=== PATIENT | female | born 1945 | race Caucasian/White ===

== ENCOUNTER 2020-10-05 06:02 | Outpatient (REF) | payer MEDICARE, OTHER, SELFPAY ==
[2020-10-05 11:39] LABS: Hematocrit 45.6 % (37-47); Hemoglobin 14.5 g/dl (12.0-16.0); Mean Corpuscular HGB Conc 31.8 g/dl (31.0-35.0); Mean Corpuscular Hemoglobin 30.6 pg (27.0-33.0); Mean Corpuscular Volume 96.2 fL (80-98); Mean Platelet Volume 11.3 fL (9.4-12.3); Platelet Count 201 X10*3/uL (160-400); Red Blood Count 4.74 X10*6/uL (4.20-5.50); Red Cell Distribution Width 12.4 % (11.0-16.0); White Blood Count 5.3 X10*3/uL (4.8-10.8)
[2020-10-05 11:47] LABS: Glucose Urine UA NEG (NEG); Leukocyte Esterase Urine 3+ (NEG); Nitrite Urine POS (NEG); Urine Blood TRACE (NEG); Urine Ketones NEG (NEG); Urine Protein NEG (NEG-TRACE)
[2020-10-05 11:54] LABS: Appearance Urine CLOUDY; Color Urine YELLOW
[2020-10-05 11:59] LABS: WBC Urine TNTC /HPF (0-4)
[2020-10-05 12:00] LABS: Bacteria Urine 3+ /LPF; Mucus Urine 1+ /LPF; Renal Epithelial Cells Urine 1+ /LPF; Squamous Epithelial Cell Urine 1+ /LPF
[2020-10-05 12:16] LABS: Alanine Aminotransferase 11 U/L (0-31); Albumin Level 4.2 g/dL (3.5-5.0); Alkaline Phosphatase 82 U/L (39-117); Anion Gap 13 (12-20); Aspartate Amino Transferase 18 U/L (5-31); Bilirubin Total 0.6 mg/dL (0.0-1.0); Blood Urea Nitrogen 17 mg/dL (9-16); Calcium 9.1 mg/dL (8.4-10.2); Carbon Dioxide 29 mmol/L (22-29); Chloride 105 mmol/L (96-108); Cholesterol 224 mg/dL; Estimated Glomerular Filt Rate > 60; Glucose Fasting 87 mg/dL (60-99); HDL Cholesterol 77 mg/dL; LDL Cholesterol Calculated 132 mg/dl; Potassium 4.7 mmol/l (3.3-5.1); Sodium 142 mmol/L (135-145); Total Protein 6.6 g/dL (6.5-8.0); Triglycerides 79 mg/dL
[2020-10-05 12:17] LABS: Vitamin D 25-OH Total 37.4 ng/mL (>30)
== END 2020-10-05 06:03 | disposition home or self-care (01) ==
LOC: HO.HMGCLDS 06:02
PROVIDERS: PCP Internal Medicine; Visit Provider Internal Medicine
DX: M85.89 Other specified disorders of bone density and structure, multiple sites (principal); E78.2 Mixed hyperlipidemia; E55.9 Vitamin D deficiency, unspecified
CPT/HCPCS: 36415; 80053; 80061; 81001; 82306; 85027

== ENCOUNTER 2020-10-07 06:07 | Outpatient (REF) | payer MEDICARE, OTHER, SELFPAY ==
[2020-10-07 11:44] LABS: Glucose Urine UA NEG (NEG); Leukocyte Esterase Urine 3+ (NEG); Nitrite Urine POS (NEG); Specific Gravity - Urine 1.025 (1.005-1.025); Urine Blood TRACE (NEG); Urine Ketones NEG (NEG); Urine Protein NEG (NEG-TRACE)
[2020-10-07 11:49] LABS: Appearance Urine CLOUDY; Color Urine YELLOW
[2020-10-07 12:13] LABS: Bacteria Urine 3+ /LPF; Calcium Oxalate Crystals Urine 2+ /LPF; Mucus Urine 1+ /LPF; Squamous Epithelial Cell Urine 1+ /LPF; WBC Urine TNTC /HPF (0-4)
== END 2020-10-07 06:08 | disposition home or self-care (01) ==
LOC: HO.HMGCLDS 06:07
PROVIDERS: PCP Internal Medicine; Visit Provider Internal Medicine
DX: R82.71 Bacteriuria (principal)
CPT/HCPCS: 81001; 87086; 87088; 87186

== ENCOUNTER 2020-12-14 07:37 | Outpatient (REF) | payer MEDICARE, OTHER, SELFPAY ==
--- NOTE | ~2020-12-14 | MM_ITS ---
EXAMINATION: MM SCREENING DIGITAL BREAST TOMOSYNTHESIS, BILATERAL CLINICAL INFORMATION: Screening. Asymptomatic. And prior history benign breast surgery in 1980s. The lifetime risk of breast cancer based on the Tyrer-Cuzick Model is 8%. COMPARISON: Mammography: 07/12/2019, 06/29/2018, 06/27/2017 TECHNIQUE: Digital breast tomosynthesis is performed in both the craniocaudal and mediolateral oblique views along with computer-aided detection (CAD). Synthesized 2D images are generated from the tomosynthesis. FINDINGS: There are scattered areas of fibroglandular density (ACR BI-RADS breast composition Category b). There are no significant masses, abnormal calcifications, or other abnormalities. The axilla and skin contours are unremarkable. No significant changes. MM/MM tomosynthesis screening BI IMPRESSION: No mammographic evidence of malignancy. ASSESSMENT: BI-RADS 1: Negative RECOMMENDATION: Routine annual mammography screening. This patient's information was entered into a reminder system with a target due date for their next mammogram.
== END 2020-12-14 07:38 | disposition home or self-care (01) ==
LOC: HO.MAMMO 07:37
PROVIDERS: PCP Internal Medicine; Visit Provider Internal Medicine
DX: Z12.31 Encounter for screening mammogram for malignant neoplasm of breast (principal)
CPT/HCPCS: 77063; 77067

== ENCOUNTER 2021-04-07 07:01 | Outpatient (REF) | payer MEDICARE, OTHER, SELFPAY ==
[2021-04-07 11:34] LABS: Glucose Urine UA NEG (NEG); Leukocyte Esterase Urine 3+ (NEG); Nitrite Urine POS (NEG); UACC Culture Trigger YES; Urine Blood 1+ (NEG); Urine Ketones NEG (NEG); Urine Protein NEG (NEG-TRACE)
[2021-04-07 11:35] LABS: Appearance Urine CLOUDY; Color Urine YELLOW
[2021-04-07 11:48] LABS: WBC Clumps Urine NOTED; WBC Urine TNTC /HPF (0-4)
[2021-04-07 11:49] LABS: Bacteria Urine 4+ /LPF
[2021-04-07 12:03] LABS: Alanine Aminotransferase 14 U/L (0-31); Albumin Level 4.5 g/dL (3.5-5.0); Alkaline Phosphatase 95 U/L (39-117); Anion Gap 15 (12-20); Aspartate Amino Transferase 24 U/L (5-31); Bilirubin Total 0.7 mg/dL (0.0-1.0); Blood Urea Nitrogen 13 mg/dL (9-16); Calcium 9.5 mg/dL (8.4-10.2); Carbon Dioxide 23 mmol/L (22-29); Chloride 105 mmol/L (96-108); Cholesterol 224 mg/dL; Estimated Glomerular Filt Rate > 60; Glucose Fasting 91 mg/dL (60-99); HDL Cholesterol 85 mg/dL; LDL Cholesterol Calculated 118 mg/dl; Potassium 4.3 mmol/L (3.3-5.1); Sodium 139 mmol/L (135-145); Total Protein 6.9 g/dL (6.5-8.0); Triglycerides 106 mg/dL
== END 2021-04-07 07:02 | disposition home or self-care (01) ==
LOC: HO.HMGCLDS 07:01
PROVIDERS: PCP Internal Medicine; Visit Provider Internal Medicine
DX: E78.5 Hyperlipidemia, unspecified (principal); R82.71 Bacteriuria
CPT/HCPCS: 36415; 80053; 80061; 81001; 81003; 87086; 87088; 87186

== ENCOUNTER 2021-12-27 08:04 | Outpatient (REF) | payer MEDICARE, OTHER, SELFPAY ==
--- NOTE | ~2021-12-27 | MM_ITS ---
EXAMINATION: MM SCREENING DIGITAL BREAST TOMOSYNTHESIS, BILATERAL CLINICAL INFORMATION: Screening. Asymptomatic. The lifetime risk of breast cancer based on the Tyrer-Cuzick Model is 4%. COMPARISON: Mammography: 12/14/2020, 07/12/2019, 06/29/2018 TECHNIQUE: Digital breast tomosynthesis is performed in both the craniocaudal and mediolateral oblique views along with computer-aided detection (CAD). Synthesized 2D images are generated from the tomosynthesis. FINDINGS: There are scattered areas of fibroglandular density (ACR BI-RADS breast composition Category b). There are no significant masses, abnormal calcifications, or other abnormalities. Parenchymal pattern is similar to prior studies. Small circumscribed nodularity central anterior right breast on MLO tomography are stable from prior studies. There are no significant changes. MM/MM tomosynthesis screening BI IMPRESSION: No mammographic evidence of malignancy. ASSESSMENT: BI-RADS 2: Benign RECOMMENDATION: Routine annual mammography screening. This patient's information was entered into a reminder system with a target due date for their next mammogram.
== END 2021-12-27 08:05 | disposition home or self-care (01) ==
LOC: HO.MAMMO 08:04
PROVIDERS: PCP Internal Medicine; Visit Provider Internal Medicine
DX: Z12.31 Encounter for screening mammogram for malignant neoplasm of breast (principal)
CPT/HCPCS: 77063; 77067

== ENCOUNTER 2022-05-16 08:30 | Outpatient (REF) | payer MEDICARE, OTHER, SELFPAY ==
[2022-05-16 08:53] LABS: Binax Internal Control QC Valid; Binax Now Covid-19 Ag Positive (Negative); Binax Performed by: HO.BONILM
== END 2022-05-16 08:31 | disposition home or self-care (01) ==
LOC: HO.HMGCLDS 08:30
PROVIDERS: Visit Provider Internal Medicine
DX: Z20.822 Contact with and (suspected) exposure to COVID-19 (principal); J06.9 Acute upper respiratory infection, unspecified
CPT/HCPCS: 87811

== ENCOUNTER 2023-01-26 09:12 | Outpatient (REF) | payer MEDICARE, OTHER, SELFPAY ==
--- NOTE | ~2023-01-26 | MM_ITS ---
EXAMINATION: MM SCREENING DIGITAL BREAST TOMOSYNTHESIS, BILATERAL CLINICAL INFORMATION: Screening. Asymptomatic. The lifetime risk of breast cancer based on the Tyrer-Cuzick Model is 3%. COMPARISON: Mammography: December 27, 2021 and studies dating back to June 29, 2018 TECHNIQUE: Digital breast tomosynthesis is performed in both the craniocaudal and mediolateral oblique views along with computer-aided detection (CAD). Synthesized 2D images are generated from the tomosynthesis. FINDINGS: There are scattered areas of fibroglandular density (ACR BI-RADS breast composition Category b). There are no significant masses, abnormal calcifications, or other abnormalities. MM/MM tomosynthesis screening BI IMPRESSION: No significant changes from prior exam. ASSESSMENT: BI-RADS 1: Negative RECOMMENDATION: Routine annual mammography screening. This patient's information was entered into a reminder system with a target due date for their next mammogram.
== END 2023-01-26 09:13 | disposition home or self-care (01) ==
LOC: HO.MAMMO 09:12
PROVIDERS: PCP Internal Medicine; Visit Provider Internal Medicine
DX: Z12.31 Encounter for screening mammogram for malignant neoplasm of breast (principal)
CPT/HCPCS: 77063; 77067

== ENCOUNTER 2023-06-14 06:02 | Outpatient (REF) | payer MEDICARE, OTHER, SELFPAY ==
[2023-06-14 11:36] LABS: MANUAL DIFF FLAG NO
[2023-06-14 11:42] LABS: Basophils Absolute Auto 0.1 X10*3/uL (0.0-0.2); Basophils Percent Auto 0.9 % (0-2); Eosinophils Absolute Auto 0.2 X10*3/uL (0.0-0.4); Eosinophils Percent Auto 3.7 % (0-4); Hematocrit 45.5 % (37.0-47.0); Hemoglobin 14.6 g/dl (12.0-16.0); Imm Gran Abs Auto 0.02 X10*3/uL (0.00-0.03); Imm Gran Pct Auto 0.3 % (0.0-0.4); Lymphocytes Absolute Auto 1.1 X10*3/uL (1.2-4.9); Lymphocytes Percent Auto 16.7 % (20-40); Mean Corpuscular HGB Conc 32.1 g/dl (31.0-35.0); Mean Corpuscular Hemoglobin 30.2 pg (27.0-33.0); Mean Corpuscular Volume 94.2 fL (80.0-98.0); Mean Platelet Volume 10.9 fL (9.4-12.3); Monocytes Absolute Auto 0.6 X10*3/uL (0.1-1.2); Monocytes Percent Auto 8.4 % (2-11); Neutrophils Absolute Auto 4.6 x10*3/uL (2.0-8.3); Platelet Count 198 X10*3/uL (160-400); Red Blood Count 4.83 X10*6/uL (4.20-5.50); Red Cell Distribution Width 12.2 % (11.0-16.0); White Blood Count 6.5 X10*3/uL (4.8-10.8)
[2023-06-14 12:20] LABS: Alanine Aminotransferase 13 U/L (0-31); Albumin Level 4.2 g/dL (3.5-5.0); Alkaline Phosphatase 87 U/L (39-117); Anion Gap 14 (12-20); Aspartate Amino Transferase 21 U/L (5-31); Bilirubin Total 0.8 mg/dL (0.0-1.0); Blood Urea Nitrogen 11 mg/dL (9-16); Calcium 9.4 mg/dL (8.4-10.2); Carbon Dioxide 26 mmol/L (22-29); Chloride 107 mmol/L (96-108); Cholesterol 222 mg/dL; Estimated Glomerular Filt Rate > 60; Glucose Fasting 94 mg/dL (60-99); HDL Cholesterol 77 mg/dL; LDL Cholesterol Calculated 128 mg/dl; Potassium 4.1 mmol/L (3.3-5.1); Sodium 143 mmol/L (135-145); Total Protein 6.5 g/dL (6.5-8.0); Triglycerides 85 mg/dL; Vitamin D 25-OH Total 44.1 ng/mL (>30)
== END 2023-06-14 06:03 | disposition home or self-care (01) ==
LOC: HO.HMGCLDS 06:02
PROVIDERS: PCP Internal Medicine; Visit Provider Internal Medicine
DX: E55.9 Vitamin D deficiency, unspecified (principal); M85.80 Other specified disorders of bone density and structure, unspecified site; E78.5 Hyperlipidemia, unspecified
CPT/HCPCS: 36415; 80053; 80061; 82306; 84443; 85025

== ENCOUNTER 2023-06-15 10:12 | Outpatient (AMB) | payer MEDICARE, OTHER, SELFPAY ==
--- NOTE | 2023-06-15 10:26 | A.OFFPC_ITS ---
Vital Signs 06/15/23 10:27 Height 5 ft 8 in Weight 155 lb BMI 23.6 BP 132/80 Blood Pressure Location Lt brachial Position Sitting Pulse 95 Pulse Source Pulse Oximeter Pulse Oximetry (%) 98 Oxygen Delivery Method Room Air Intake Visit Reasons: PE/ hyoerlipid Intake Note: Pt is here today for PE. Allergies No Known Allergies Allergy (Verified 06/15/23 10:29) Medication List - Last Reconciled 06/15/23 by Sarah Funes MD calcium carbonate-vitamin D2 600 mg calcium- 200 unit tabs PO multivitamin 1 tab PO DAILY Tobacco use date assessed: 06/15/23 Fall risk assessment: 1 Fall in past year Last assessed Fall Risk: 06/15/23 Dental Screening Dental Screen Date: 06/15/23 Did you have a dental visit in the last 12 months?: Yes Did you have a dental problem in the last 6 months where you did not have access to dental care?: No Was dental information given to patient?: Patient has dentist HPI PE/ hyoerlipid HPI Details Pt presents for PE. Pt had been following low cholesterol diet. [facility] Medical History Bacteriuria, asymptomatic Chondrodermatitis nodularis helicis Hyperlipidemia Mammogram normal Osteopenia Surgical History History of colonoscopy History of total abdominal hysterectomy and bilateral salpingo-oophorectomy Family History Father HTN (hypertension) Colon cancer Mother CVD (cardiovascular disease) Osteoporosis Brother No problems noted. Brother No problems noted. Social History (Updated 06/15/23 @ 11:00 by Sarah Funes MD) Household Members Other:: lives alone, Housing: Condominium Alcohol intake: never Patient Tobacco Use Status: Never used Tobacco e-Cigarette/Vaping Use: Never Used Current occupational status: retired Cognitive needs: No Hearing needs: No Vision needs: Yes Questionnaire PHQ-9 Over the last 2 weeks, how often have you been bothered by any of the following problems? 1. Little interest or pleasure in doing things: not at all 2. Feeling down, depressed, or hopeless: not at all 3. Trouble falling or staying asleep, or sleeping too much: not at all 4. Feeling tired or having little energy: not at all 5. Poor appetite or overeating: not at all 6. Feeling bad about yourself - or that you are a failure or have let yourself or your family down: not at all 7. Trouble concentrating on things, such as reading the newspaper or watching television: not at all 8. Moving or speaking so slowly that other people could have noticed. Or the opposite - being so fidgety or restless that you have been moving around a lot m ore than usual: not at all 9. Thoughts that you would be better off or of hurting yourself in some way: not at all Total score: 0 Depression Screening Interpretation: Negative Source: Developed by Drs. Monroe Perez, Alexus Madrigal, Doug Nascimento and colleagues, with an educational shira from [employer] Thrive Questionnaire Date Thrive assessed: 06/15/23 I am a: Patient What is your living situation today?: I have a steady place to live Within the past 12 months, did the food you bought not last and you didn't have the money to get more?: Never true Within the past 12 months, did you worry whether your food would run out before you got money to buy more?: Never true Do you have trouble paying for medicines?: No Do you have trouble getting transportation to medical appointments?: No Do you have trouble paying your heating and electricity bill?: No Do you have trouble taking care of your child, family member or friend?: No Do you have trouble with day-to-day activities such as bathing, preparing meals, shopping, managing finances, etc.?: No Are you currently unemployed and looking for a job?: No Are you interested in more education?: No Please select the resources that you would like help with: None Currently or been in a relationship where the following occur: no concerns reported AUDIT C Alcohol Use Questionnaire (AUDIT-C) 1. How often do you have a drink containing alcohol?: Never 3. How often do you have six or more drinks on one occasion?: Never Total Score: 0 ALEXANDER-7 AMB Questionnaire ALEXANDER-7 Date ALEXANDER - 7 assessed: 06/15/23 Feeling nervous, anxious, or on edge: 0 = Not at all Not being able to stop or control worryin = Not at all Worrying too much about different things: 0 = Not at all Trouble relaxin = Not at all Being so restless that it is hard to sit still: 0 = Not at all Becoming easily annoyed or irritable: 0 = Not at all Feeling afraid as if something awful might happen: 0 = Not at all Total ALEXANDER-7 score (0-4 normal; 5-9 mild; 10-14 moderate; 15-21 severe): 0 Source: Developed by Drs. Monroe Perez, Alexus Madrigal, Doug Nascimento and colleagues, with an educational shira from [employer] Review of Systems Const All systems reviewed & are unremarkable except as noted in HPI and below Reports no additional complaints Eyes Reports no additional complaints ENT Reports no additional complaints Card Reports no additional complaints Resp Reports no additional complaints GI Reports no additional complaints Reports no additional complaints Physical exam (Primary Care) Vital Signs: Last Vital Signs Pulse 95 06/15/23 10:27 BP 132/80 06/15/23 10:27 Pulse Ox 98 06/15/23 10:27 Oxygen Delivery Method Room Air 06/15/23 10:27 BMI result Body Mass Index 23.6 Tobacco/Smoking Status: Tobacco use Status Tobacco use date assessed 06/15/23 06/15/23 10:35 Patient Tobacco Use Status Never used Tobacco 06/15/23 10:35 e-Cigarette/Vaping Use Never Used 06/15/23 10:35 PHQ-9: PHQ-9 Score PHQ-9: Total score 0 06/15/23 10:35 Depression Screening Interpretation: Negative Thrive Assessment: Date of Thrive Assessment Date Thrive assessed 06/15/23 06/15/23 10:35 Currently or been in a relationship where the following occur: no concerns reported Const General: no acute distress HENMT Ears: hearing grossly normal bilaterally Face and sinus: Yes normal facial exam Mouth: Normal oral and palatal mucosa present Eyes General: appearance normal, both eyes and all related structures Neck Neck: Yes supple Resp Effort & Inspection: normal respiratory effort Auscultation: clear to auscultation bilaterally Cardio Rhythm: regular rhythm Heart sounds: S1 normal heart sound present and S2 normal heart sound present GI Inspection: Yes normal to inspection Palpation (GI): Soft to palpation Percussion: Yes normal to percussion Auscultation: normal bowel sounds Assessment and Plan Assessment & Plan (1) Osteopenia: Comment: DEXA 11/2019 T score 1.3 femur Code(s): M85.80 - Other specified disorders of bone density and structure, unspecified site Plan: Continue regular exercise and vitamin-D supplement (2) Hyperlipidemia: Code(s): E78.5 - Hyperlipidemia, unspecified Plan: Continue low-cholesterol diet (3) Annual physical exam: Code(s): Z00.00 - Encounter for general adult medical examination without abnormal findings Plan: Well-balanced diet and regular physical activity discussed with the patient Orders: Orders Comprehensive Hale. Panel Fast 365 Days E55.9 - Vitamin D deficiency, unspecified, E78.5 - Hyperlipidemia, unspecified, M85.80 - Other specified disorders of bone density and structure, unspecified site, Z00.00 - Encounter for general adult medical examination without abnormal findings Lipid Panel 365 Days E55.9 - Vitamin D deficiency, unspecified, E78.5 - Hyperlipidemia, unspecified, M85.80 - Other specified disorders of bone density and structure, unspecified site, Z00.00 - Encounter for general adult medical examination without abnormal findings TSH reflex Free T4 365 Days E55.9 - Vitamin D deficiency, unspecified, E78.5 - Hyperlipidemia, unspecified, M85.80 - Other specified disorders of bone density and structure, unspecified site, Z00.00 - Encounter for general adult medical examination without abnormal findings Vitamin D 25-OH Total 365 Days E55.9 - Vitamin D deficiency, unspecified, E78.5 - Hyperlipidemia, unspecified, M85.80 - Other specified disorders of bone density and structure, unspecified site, Z00.00 - Encounter for general adult medical examination without abnormal findings Complete Blood Count Auto Diff 365 Days E55.9 - Vitamin D deficiency, unspecified, E78.5 - Hyperlipidemia, unspecified, M85.80 - Other specified disorders of bone density and structure, unspecified site, Z00.00 - Encounter for general adult medical examination without abnormal findings Coding Level of Care Code Est Pt Prev Care >65y(12810) Diagnoses Osteopenia M85.80 Hyperlipidemia E78.5 Annual physical exam Z00.00
[2023-06-15 10:27] VITALS: BP 132/80; PULSE 95; O2SAT 98; BMI 23.6
== END 2023-06-15 10:58 | disposition home or self-care (01) ==
PROVIDERS: PCP Internal Medicine; Visit Provider Internal Medicine
DX: Z00.00 Encounter for general adult medical examination without abnormal findings (principal); M85.80 Other specified disorders of bone density and structure, unspecified site; E78.5 Hyperlipidemia, unspecified
CPT/HCPCS: 99397

== ENCOUNTER 2024-01-30 09:20 | Outpatient (AMB) | payer MEDICARE, OTHER, SELFPAY ==
[2024-01-30 09:26] VITALS: BP 130/80; PULSE 83; O2SAT 99; BMI 23.4
--- NOTE | 2024-01-30 09:26 | MHC.PC.OV ---
Vital Signs 01/30/24 09:26 Height 5 ft 8 in Weight 154 lb BMI 23.4 BP 130/80 Blood Pressure Location Lt brachial Position Sitting Pulse 83 Pulse Source Pulse Oximeter Pulse Oximetry (%) 99 Oxygen Delivery Method Room Air Intake Visit Reasons: Pre Op Cataract [place] Intake Note: Pt is here today for pre op visit. Pt is having cataract done on 02/12/24. Allergies No Known Allergies Allergy (Verified 01/30/24 09:31) Tobacco use date assessed: 01/30/24 Fall risk assessment: 1 Fall in past year Last assessed Fall Risk: 01/30/24 Dental Screening Dental Screen Date: 01/30/24 Did you have a dental visit in the last 12 months?: Yes Did you have a dental problem in the last 6 months where you did not have access to dental care?: No Was dental information given to patient?: Patient has dentist [facility] Details Pt presents for preop cataract surgery. [facility] Medical History Bacteriuria, asymptomatic Chondrodermatitis nodularis helicis Hyperlipidemia Mammogram normal Osteopenia Surgical History History of colonoscopy History of total abdominal hysterectomy and bilateral salpingo-oophorectomy Family History Father HTN (hypertension) Colon cancer Mother CVD (cardiovascular disease) Osteoporosis Brother No problems noted. Brother No problems noted. Social History (Updated 06/15/23 @ 11:00 by Sarah Funes MD) Household Members Other:: lives alone, Housing: Condominium Alcohol intake: never Patient Tobacco Use Status: Never used Tobacco e-Cigarette/Vaping Use: Never Used Current occupational status: retired Cognitive needs: No Hearing needs: No Vision needs: Yes Questionnaire PHQ-9 Over the last 2 weeks, how often have you been bothered by any of the following problems? 1. Little interest or pleasure in doing things: not at all 2. Feeling down, depressed, or hopeless: not at all 3. Trouble falling or staying asleep, or sleeping too much: not at all 4. Feeling tired or having little energy: not at all 5. Poor appetite or overeating: not at all 6. Feeling bad about yourself - or that you are a failure or have let yourself or your family down: not at all 7. Trouble concentrating on things, such as reading the newspaper or watching television: not at all 8. Moving or speaking so slowly that other people could have noticed. Or the opposite - being so fidgety or restless that you have been moving around a lot more than usual: not at all 9. Thoughts that you would be better off or of hurting yourself in some way: not at all Total score: 0 Depression Screening Interpretation: Negative Depression Screening Done: Yes Source: Developed by Drs. Monroe Perez, Alexus Madrigal, Doug Nascimento and colleagues, with an educational shira from [email or web address]. Thrive Questionnaire Date Thrive assessed: 01/30/24 I am a: Patient What is your living situation today?: I have a steady place to live Within the past 12 months, did the food you bought not last and you didn't have the money to get more?: Never true Within the past 12 months, did you worry whether your food would run out before you got money to buy more?: Never true Do you have trouble paying for medicines?: No Do you have trouble getting transportation to medical appointments?: No Do you have trouble paying your heating and electricity bill?: No Do you have trouble taking care of your child, family member or friend?: No Do you have trouble with day-to-day activities such as bathing, preparing meals, shopping, managing finances, etc.?: No Are you currently unemployed and looking for a job?: No Are you interested in more education?: No Please select the resources that you would like help with: None THRIVE Score: 0 ALEXANDER-7 AMB Questionnaire ALEXANDER-7 Date ALEXANDER - 7 assessed: 01/30/24 Feeling nervous, anxious, or on edge: 0 = Not at all Not being able to stop or control worryin = Not at all Worrying too much about different things: 0 = Not at all Trouble relaxin = Not at all Being so restless that it is hard to sit still: 0 = Not at all Becoming easily annoyed or irritable: 0 = Not at all Feeling afraid as if something awful might happen: 0 = Not at all Total ALEXANDER-7 score (0-4 normal; 5-9 mild; 10-14 moderate; 15-21 severe): 0 Source: Developed by Drs. Monroe Perez, Alexus Madrigal, Doug Nascimento and colleagues, with an educational shira from [email or web address]. Review of Systems Const All systems reviewed & are unremarkable except as noted in HPI and below Reports no additional complaints Eyes Reports no additional complaints ENT Reports no additional complaints Card Reports no additional complaints Resp Reports no additional complaints GI Reports no additional complaints Reports no additional complaints Physical exam (Primary Care) Vital Signs: Last Vital Signs Pulse 83 01/30/24 09:26 BP 130/80 01/30/24 09:26 Pulse Ox 99 01/30/24 09:26 Oxygen Delivery Method Room Air 01/30/24 09:26 BMI result Body Mass Index 23.4 Tobacco/Smoking Status: Tobacco use Status Tobacco use date assessed 01/30/24 01/30/24 09:34 Patient Tobacco Use Status Never used Tobacco 01/30/24 09:34 e-Cigarette/Vaping Use Never Used 01/30/24 09:27 PHQ-9: PHQ-9 Score PHQ-9: Total score 0 01/30/24 09:34 Depression Screening Interpretation: Negative Thrive Assessment: Date of Thrive Assessment Date Thrive assessed 01/30/24 01/30/24 09:34 Const General: no acute distress HENMT Head: Yes normal to inspection Face and sinus: Yes normal facial exam Mouth: Normal oral and palatal mucosa present Eyes General: appearance normal, both eyes and all related structures Neck Neck: Yes supple Resp Effort & Inspection: normal respiratory effort Auscultation: clear to auscultation bilaterally Cardio Rhythm: regular rhythm Heart sounds: S1 normal heart sound present and S2 normal heart sound present GI Inspection: Yes normal to inspection Assessment and Plan Assessment & Plan (1) Cataract: Code(s): H26.9 - Unspecified cataract Plan: Patient is medically cleared for the cataract surgery. Coding Level of Care Code Est Pt Level 3 (62897) Diagnoses Cataract H26.9
== END 2024-01-30 10:03 | disposition home or self-care (01) ==
PROVIDERS: PCP Internal Medicine; Visit Provider Internal Medicine
DX: H26.9 Unspecified cataract (principal)
CPT/HCPCS: 99213

== ENCOUNTER 2024-02-06 07:16 | Outpatient (REF) | payer MEDICARE, OTHER, SELFPAY | END 2024-02-06 07:17 | disposition home or self-care (01) | LOC: HO.MAMMO 07:16 | PROVIDERS: PCP Internal Medicine; Visit Provider Internal Medicine | DX: Z12.31 Encounter for screening mammogram for malignant neoplasm of breast (principal) | CPT/HCPCS: 77063; 77067 ==

== ENCOUNTER → 2024-02-06 07:30 | Outpatient (BNV) | payer MEDICARE, OTHER, SELFPAY | PROVIDERS: PCP Internal Medicine; Visit Provider Radiology Diagnostic Radiology | DX: Z12.31 Encounter for screening mammogram for malignant neoplasm of breast (principal) | CPT/HCPCS: 77063; 77067 ==

== ENCOUNTER 2024-02-12 05:59 | Day surgery (SDC) | payer MEDICARE, OTHER, SELFPAY ==
[2024-02-06 10:42] VITALS: BMI 23.4
--- NOTE | 2024-02-08 13:50 | HO.ANESPROP2 ---
Documented by User: Nancy Winston NP 02/08/24 13:51 HPI - Anesthesia Eval Consult details Narrative: 78yo F for Right Cataract Extraction IOL Insertion Optimized per PCP No previous cataract on record PMFSH Active Problems Active Problems: All Active Problems Cataract (Acute) Annual physical exam (Acute) Corneal abrasion of right eye due to contact lens (Acute) Vitamin D deficiency (Acute) Upper respiratory tract infection (Acute) Osteopenia (Acute) Hyperlipidemia (Acute) Mammogram normal (Acute) Bacteriuria, asymptomatic (Acute) Past Medical History Medical History Hyperlipidemia Mammogram normal Chondrodermatitis nodularis helicis Osteopenia Bacteriuria, asymptomatic Family History Family History Father HTN (hypertension) Colon cancer Mother CVD (cardiovascular disease) Osteoporosis Brother No problems noted. Brother No problems noted. Surgical History Surgical History History of total abdominal hysterectomy and bilateral salpingo-oophorectomy History of colonoscopy Social History Social History Household Members Other:: lives alone, Housing: Condominium Alcohol intake: never Patient Tobacco Use Status: Never used Tobacco e-Cigarette/Vaping Use: Never Used Use of substances other than those prescribed or required for medical reasons: No Are you DNR?: No Advance Directives: No Advance Directives Information Provided: Yes Current occupational status: retired Cognitive needs: No Hearing needs: No Vision needs: Yes Meds Allergies Allergy/AdvReac Type Severity Reaction Status Date / Time No Known Allergies Allergy Verified 01/30/24 09:31 Home Medications ?Medication ?Instructions ?Recorded ?Confirmed ?Last Taken ?Type multivitamin 1 tab PO DAILY 10/08/20 06/15/23 Unknown History calcium carb-ergocalciferol (vit tab PO 08/13/22 06/15/23 Unknown History D2) 600 mg calcium-200 unit tablet Exam Height,Weight and Vital Signs: Height 5 ft 8 in Weight 69.853 kg Assessment and Plan Assessment Anesthesia Assessment: Chart Reviewed Documented by User: Tuyet Alcaraz MD 02/12/24 07:55 PMFSH Past Medical History Medical History Hyperlipidemia Mammogram normal Chondrodermatitis nodularis helicis Osteopenia Bacteriuria, asymptomatic Family History Family History Father HTN (hypertension) Colon cancer Mother CVD (cardiovascular disease) Osteoporosis Brother No problems noted. Brother No problems noted. Family history of problems with anesthesia: No Surgical History Surgical History History of total abdominal hysterectomy and bilateral salpingo-oophorectomy History of colonoscopy History of Problems with Anesthesia: No Social History Social History Household Members Other:: lives alone, Housing: Condominium Alcohol intake: never Patient Tobacco Use Status: Never used Tobacco e-Cigarette/Vaping Use: Never Used Use of substances other than those prescribed or required for medical reasons: No Are you DNR?: No Advance Directives: No Advance Directives Information Provided: Yes Current occupational status: retired Cognitive needs: No Hearing needs: No Vision needs: Yes Meds Allergies Allergy/AdvReac Type Severity Reaction Status Date / Time No Known Allergies Allergy Verified 01/30/24 09:31 Home Medications ?Medication ?Instructions ?Recorded ?Confirmed ?Last Taken ?Type multivitamin 1 tab PO DAILY 10/08/20 06/15/23 Unknown History calcium carb-ergocalciferol (vit tab PO 08/13/22 06/15/23 Unknown History D2) 600 mg calcium-200 unit tablet Exam Airway Mallampati Class: II TM Dist: >3cm Neck ROM: Full Heart: rrr Lungs: cta Assessment and Plan Assessment Anesthesia Assessment: Anesthesia Plan Discussed and Chart Reviewed Final Anesthetic Review Family History of Problems with Anesthesia: No History of Problems with Anesthesia: No NPO: Yes ASA Class: II Final Preanesthetic Review: No Changes in Pt Med Stat, Meds/Allgs Chart Reviewed, Consent Obtained/Reviewed and Anes Risks/Benef Reviewed Patient Risk: Low Procedure Risk: Low Anesthetic Plan Anesthetic Plan: MAC: Disposition: Standard PACU
[2024-02-12 06:02] VITALS: BMI 24.0
[2024-02-12 06:18] VITALS: BP 172/87; PULSE 106; RESP 16; TEMP 36.9; O2SAT 96
[2024-02-12] MEDS: Lactated Ringers 500 ML 50 ML IV (06:20)
[2024-02-12] MEDS: Tetracaine HCl/PF 0.5% Oph Sol 4 ML DROPS 1 DROP EYE-RIGHT (06:57)
[2024-02-12] MEDS: Cyclopentolate 1 % Ophth Sol 2 ML DRPBTL 1 DROP EYE-RIGHT ×3 (07:00→07:24)
[2024-02-12] MEDS: Tropicamide 1 % Ophth Sol 3 ML BTL 1 DROP EYE-RIGHT ×3 (07:03→07:27)
[2024-02-12] MEDS: Ketorolac Tromethamine 0.5% Op 5 ML DROPS 1 DROP EYE-RIGHT ×3 (07:06→07:30)
[2024-02-12] MEDS: Phenylephrine HCL 2.5% Oph SoL 2 ML BOTTLE 1 DROP EYE-RIGHT ×3 (07:09→07:33)
--- NOTE | 2024-02-12 08:17 | MHC.SHP ---
Pre-Procedural Eval Section A - 24 Hr Update-Section A only Date of Service: 02/12/24 The patient is an INPATIENT: No Changes since office visit: No Cold of Flu in the past 2 weeks, No New Medical Problems, No Changes in Medication and No Patient answered all questions The patient has been examined within 24 hours of the surgical procedure. The History & Physical has been completed within 30 days and I have reviewed it.: Yes Section B - Complete if H&P > 30 days Chief Complaint: Age-related nuclear cataract, right eye Allergies: Allergies Allergy/AdvReac Type Severity Reaction Status Date / Time No Known Allergies Allergy Verified 01/30/24 09:31 Plan Diagnosis/Plan: Unchanged I have reviewed the history and physical and performed a pertinent physical examination on my patient. No changes have occurred unless specified. Time Spent With Patient Time: Total time managing care of this patient today ____ minutes.
--- NOTE | 2024-02-12 08:17 | HO.PNOPHT ---
Ophthalmology Procedure Procedure Date of Service: 02/12/24 Ophthalmology Viscoelastic: Healon Duet Dual Pack Pro Ophthalmology Lenses: IOL AC Howard ([id number]) Procedure Notes: PREOPERATIVE DIAGNOSIS: Decreased visual acuity right eye secondary to cataract POSTOPERATIVE DIAGNOSIS: Same PROCEDURE: Right cataract extraction with intraocular lens insertion SURGEON: Parmjit Rivera M.D. ANESTHESIA: Topical/MAC ESTIMATED BLOOD LOSS: None COMPLICATIONS: None After obtaining informed consent, the patient was brought to the operating room suite and placed in the supine position. After adequate sedation per anesthesia, topical drops of Tetracaine were given to the right eye. The eye was then prepped and draped in the usual sterile fashion. The operating room microscope was then positioned over the operative eye and a lid speculum placed. A paracentesis was created. Viscoelastic was then instilled into the anterior chamber. A three plane incision was then created temporally, utilizing a 2.85 mm keratome. Capsulotomy forceps were then utilized to create a circular tear capsulotomy. Hydrodissection and hydrodelineation were carried out until adequate mobilization of the nucleus occurred. Phacoemulsification was then utilized to remove the dense central nucleus followed by removal of the cortical material utilizing the automated aspiration irrigation unit. Viscoelastic was instilled into the posterior capsular bag followed by placement of a posterior chamber intraocular lens without difficulty. The residual Viscoelastic was then removed utilizing the automated IA machine. The wound was checked and found to be watertight. The patient tolerated the procedure well and the lid speculum was removed. Intracameral injection of Vigamox 0.1 mL followed by a subtenon injection of Kenalog-40 0.2 mL were administered. The patient will be seen in the a.m.
[2024-02-12 08:59] VITALS: BP 148/98; PULSE 94; RESP 18; TEMP 36.4; O2SAT 99
== END 2024-02-12 09:03 | disposition home or self-care (01) ==
PROVIDERS: PCP Internal Medicine; Visit Provider Ophthalmology
PROC: (CPT 66985; principal; 2024-02-12 08:20)
DX: H25.11 Age-related nuclear cataract, right eye (principal); H52.4 Presbyopia; H18.413 Arcus senilis, bilateral; H52.13 Myopia, bilateral; H43.393 Other vitreous opacities, bilateral; H61.009 Unspecified perichondritis of external ear, unspecified ear; E78.5 Hyperlipidemia, unspecified; M85.80 Other specified disorders of bone density and structure, unspecified site; Z79.899 Other long term (current) drug therapy
CPT/HCPCS: 66984; J2250; J3010; J3301; V2630

== ENCOUNTER 2024-02-26 10:27 | Day surgery (SDC) | payer MEDICARE, OTHER, SELFPAY ==
[2024-02-06 10:40] VITALS: BMI 23.4
[2024-02-26 14:00] VITALS: BP 157/97; PULSE 102; RESP 15; TEMP 36.5; O2SAT 97
[2024-02-26] MEDS: Tetracaine HCl/PF 0.5% Oph Sol 4 ML DROPS 1 DROP EYE-LEFT (14:08)
[2024-02-26] MEDS: Tropicamide 1 % Ophth Sol 3 ML BTL 1 DROP EYE-LEFT ×3 (14:10→14:16)
[2024-02-26] MEDS: Ketorolac Tromethamine 0.5% Op 5 ML DROPS 1 DROP EYE-LEFT ×3 (14:11→14:17)
[2024-02-26] MEDS: Phenylephrine HCL 2.5% Oph SoL 2 ML BOTTLE 1 DROP EYE-LEFT ×3 (14:12→14:18)
--- NOTE | 2024-02-26 14:31 | HO.ANESPROP2 ---
HPI - Anesthesia Eval Consult details Narrative: 78 yo F presenting for Left Cataract Extraction IOL Insertion PMFSH Active Problems Active Problems: All Active Problems Cataract (Acute) Annual physical exam (Acute) Corneal abrasion of right eye due to contact lens (Acute) Vitamin D deficiency (Acute) Upper respiratory tract infection (Acute) Osteopenia (Acute) Hyperlipidemia (Acute) Mammogram normal (Acute) Bacteriuria, asymptomatic (Acute) Past Medical History Medical History Hyperlipidemia Mammogram normal Chondrodermatitis nodularis helicis Osteopenia Bacteriuria, asymptomatic Family History Family History Father HTN (hypertension) Colon cancer Mother CVD (cardiovascular disease) Osteoporosis Brother No problems noted. Brother No problems noted. Family history of problems with anesthesia: No Surgical History Surgical History (Updated 02/26/24 @ 14:19 by Jana Deshpande RN) Hx of right cataract extraction History of total abdominal hysterectomy and bilateral salpingo-oophorectomy History of colonoscopy History of Problems with Anesthesia: No Social History Social History Household Members Other:: lives alone, [facility] Alcohol intake: never Patient Tobacco Use Status: Never used Tobacco e-Cigarette/Vaping Use: Never Used Advance Directives: No Advance Directives Information Provided: Yes Current occupational status: retired Cognitive needs: No Hearing needs: No Vision needs: Yes Meds Allergies Allergy/AdvReac Type Severity Reaction Status Date / Time No Known Allergies Allergy Verified 02/26/24 14:19 Active Medications: Current Medications Povidone Iodine (Povidone Iodine 5 % Ophth Soln 30 Ml Bottle) 1 appl EYE-LEFT PREOP PRN PRN Reason: Pre-Op Surgical Implant Prophy Home Medications ?Medication ?Instructions ?Recorded ?Confirmed ?Last Taken ?Type multivitamin 1 tab PO DAILY 10/08/20 06/15/23 Unknown History calcium carb-ergocalciferol (vit tab PO 08/13/22 06/15/23 Unknown History D2) 600 mg calcium-200 unit tablet Exam Exam Date and Time: February 26, 2024 1430 Height,Weight and Vital Signs: Height 5 ft 8 in Weight 69.853 kg Last Vital Signs Temp 97.7 F 02/26/24 14:00 Pulse 102 H 02/26/24 14:00 Resp 15 02/26/24 14:00 BP 157/97 H 02/26/24 14:00 Pulse Ox 97 02/26/24 14:00 O2 Del Method Room Air 02/26/24 14:00 Airway Mallampati Class: II TM Dist: >3cm Neck ROM: Full Loose/Missing/Broken Teeth: No (patient denies any loose or broken teeth) Heart: S1S2 Lungs: CTAB Assessment and Plan Assessment Anesthesia Assessment: Anesthesia Plan Discussed and Chart Reviewed Final Anesthetic Review Family History of Problems with Anesthesia: No History of Problems with Anesthesia: No NPO: Yes ASA Class: II Final Preanesthetic Review: No Changes in Pt Med Stat, Meds/Allgs Chart Reviewed, Consent Obtained/Reviewed and Anes Risks/Benef Reviewed Patient Risk: Low Procedure Risk: Low Anesthetic Plan Anesthetic Plan: MAC: and Agree w/ Assess. and Plan Disposition: Standard PACU
--- NOTE | 2024-02-26 14:46 | MHC.SHP ---
Pre-Procedural Eval Section A - 24 Hr Update-Section A only Date of Service: 02/26/24 The patient is an INPATIENT: No Changes since office visit: No Cold of Flu in the past 2 weeks, No New Medical Problems, No Changes in Medication and No Patient answered all questions The patient has been examined within 24 hours of the surgical procedure. The History & Physical has been completed within 30 days and I have reviewed it.: Yes Section B - Complete if H&P > 30 days Chief Complaint: Age-related nuclear cataract, left eye Allergies: Allergies Allergy/AdvReac Type Severity Reaction Status Date / Time No Known Allergies Allergy Verified 02/26/24 14:19 Plan Diagnosis/Plan: Unchanged I have reviewed the history and physical and performed a pertinent physical examination on my patient. No changes have occurred unless specified. Time Spent With Patient Time: Total time managing care of this patient today ____ minutes.
--- NOTE | 2024-02-26 14:46 | HO.PNOPHT ---
Ophthalmology Procedure Procedure Date of Service: 02/26/24 Ophthalmology Viscoelastic: Healon Duet Dual Pack Pro Ophthalmology Lenses: SENSAR AR40 (E 5.5) Procedure Notes: PREOPERATIVE DIAGNOSIS: Decreased visual acuity left eye secondary to cataract POSTOPERATIVE DIAGNOSIS: Same PROCEDURE: Left cataract extraction with intraocular lens insertion SURGEON: Parmjit Rivera M.D. ANESTHESIA: Topical/MAC ESTIMATED BLOOD LOSS: None COMPLICATIONS: None After obtaining informed consent, the patient was brought to the operation room suite and placed in the supine position. After adequate sedation per anesthesia, topical drops of Tetracaine were given to the left eye. The eye was then prepped and draped in the usual sterile fashion. The operating room microscope was then positioned over the operative eye and a lid speculum placed. A paracentesis was created. Viscoelastic was then instilled into the anterior chamber. A three plane incision was then created temporally, utilizing a 2.85 mm keratome. Capsulotomy forceps were then utilized to create a circular tear capsulotomy. Hydrodissection and hydrodelineation were carried out until adequate mobilization of the nucleus occurred. Phacoemulsification was then utilized to remove the dense central nucleus followed by removal of the cortical material utilizing the automated aspiration irrigation unit. Viscoat elastic was instilled into the posterior capsular bag followed by placement of a posterior chamber intraocular lens without difficulty. The residual Viscoat elastic was then removed utilizing the automated IA machine. The wound was check and found to be watertight. The patient tolerated the procedure well and the lid speculum was removed. Intracameral injection of Vigamox 0.1 mL followed by a subtenon injection of Kenalog-40 0.2 mL were administered. The patient will be seen in the a.m.
[2024-02-26 15:15] VITALS: BP 177/92; PULSE 88; RESP 12; TEMP 37.7; O2SAT 99
== END 2024-02-26 15:35 | disposition home or self-care (01) ==
PROVIDERS: PCP Internal Medicine; Visit Provider Ophthalmology
PROC: (CPT 66985; principal; 2024-02-26 12:30)
DX: H25.12 Age-related nuclear cataract, left eye (principal); H52.4 Presbyopia; H18.413 Arcus senilis, bilateral; H52.13 Myopia, bilateral; H43.393 Other vitreous opacities, bilateral; H61.009 Unspecified perichondritis of external ear, unspecified ear; M85.80 Other specified disorders of bone density and structure, unspecified site; E78.5 Hyperlipidemia, unspecified; Z79.899 Other long term (current) drug therapy
CPT/HCPCS: 66984; J3301; V2632

== ENCOUNTER 2024-05-27 08:05 | Outpatient (AMB) | payer MEDICARE, OTHER, SELFPAY ==
[2024-05-27 08:14] VITALS: BP 122/78; PULSE 82; TEMP 36.8; O2SAT 97; BMI 22.8
--- NOTE | 2024-05-27 08:14 | AM.OFFWIN_ITS ---
Intake Vital Signs 05/27/24 08:14 Height 5 ft 8 in Weight 150 lb BMI 22.8 BP 122/78 Blood Pressure Location Lt brachial Position Sitting Pulse 82 Pulse Source Pulse Oximeter Temp 98.2 F Temp Source Temporal Artery Scan Pulse Oximetry (%) 97 Intake Visit Reasons: EP Eye concerns/?infection Intake Note: pt is here for eye concern possible infection, patient states she had cataracts done in february and not sure if its related but her eyes feel gritty Patient Tobacco Use Status: Never used Tobacco Allergies No Known Allergies Allergy (Verified 05/27/24 08:15) Do you need a note to return to daycare/school/sports/work: No HPI EP Eye concerns/?infection HPI Details This note is constructed using voice recognition software. While every effort has been made to ensure accuracy, technical services specialist errors may have been included. The patient is a 79 year old female who presents to the clinic today with 3 day history of create a sensation in bilateral eyes. She denies any change in her vision, any pain, any discharge, any itch. She reports that she has done warm compresses which seemed to reduce the symptoms some. She does follow an chocolate finisher operator, and did not though to see him as today is his procedure day, but she did not want to wait for a prolonged period of time with symptoms given her history of having bilateral cataract surgery several months ago. She notes that she is also had some recent sneezing, particularly when she is gardening. Onset 05/25/24 [facility] Medical History Hyperlipidemia Mammogram normal Chondrodermatitis nodularis helicis Osteopenia Bacteriuria, asymptomatic Surgical History (Updated 02/26/24 @ 14:19 by Jana Deshpande RN) Hx of right cataract extraction History of total abdominal hysterectomy and bilateral salpingo-oophorectomy History of colonoscopy Family History Father HTN (hypertension) Colon cancer Mother CVD (cardiovascular disease) Osteoporosis Brother No problems noted. Brother No problems noted. Social History Household Members Other:: lives alone, Housing: Condominium Alcohol intake: never Patient Tobacco Use Status: Never used Tobacco e-Cigarette/Vaping Use: Never Used Current occupational status: retired Cognitive needs: No Hearing needs: No Vision needs: Yes Review of Systems Const All systems reviewed & are unremarkable except as noted in HPI and below Physical Exam Vital Signs: Last Vital Signs Temp 98.2 F 05/27/24 08:14 Pulse 82 05/27/24 08:14 BP 122/78 05/27/24 08:14 Pulse Ox 97 05/27/24 08:14 BMI result Body Mass Index 22.8 Const General: cooperative, healthy appearing, comfortable, no acute distress and alert Orientation/consciousness: patient oriented x3 Limitations: no limitations HEENT Head: Yes normal to inspection and Yes normocephalic General nose exam: Normal external nose present Face and sinus: Yes normal facial exam and Yes sinuses nontender Eyes General: appearance normal, both eyes and all related structures Eyelids: Yes eyelids normal Conjunctivae: conjunctivae normal Sclerae: sclerae normal Pupils: Equal, round and reactive pupils present EOM: EOMs intact bilaterally Direct Ophthalmoscopy: normal light reflex Neck Neck: Yes normal visual inspection, Yes full ROM and Yes no lymphadenopathy Resp Effort & Inspection: normal respiratory effort and able to speak in complete sentences Skin General skin exam: no rashes or lesions noted, elasticity normal and turgor normal Neuro General: patient oriented x3 Cranial nerves: Yes Equal, round and reactive pupils present Psych Appearance: grossly normal Mental Status: mental status grossly normal Speech and movement: Normal speech and movement present Affect: normal affect Office Procedures Fluorescein eye exam Details: Instill tetracaine eyedrops to bilateral eyes, followed by fluorescein stain. No pooling of stain noted on lighted eye exam. Assessment & Plan Assessment & Plan (1) Irritation of both eyes: Code(s): H57.89 - Other specified disorders of eye and adnexa Plan: Normal fluorescein eye exam, examination without specific findings. Advised patient to trial bbfd-byr-npibome saline, and continue warm compresses to the eyes. Advised follow up with Ophthalmology should symptoms continue or worsen. Plan See above for full details and plan. Coding Level of Care Code Est Pt Level 3 (15567) Diagnoses Irritation of both eyes H57.89 Time Spent (min) 15
== END 2024-05-27 09:28 | disposition home or self-care (01) ==
PROVIDERS: PCP Internal Medicine; Visit Provider Registered Nurse
DX: H57.89 Other specified disorders of eye and adnexa (principal)
CPT/HCPCS: 99213

== ENCOUNTER 2024-06-24 08:18 | Outpatient (AMB) | payer MEDICARE, OTHER, SELFPAY ==
[2024-06-24 08:20] VITALS: BP 130/74; PULSE 97; O2SAT 98; BMI 23.7
--- NOTE | 2024-06-24 08:20 | MHC.PC.OV ---
Vital Signs 06/24/24 08:20 Height 5 ft 8 in Weight 156 lb BMI 23.7 BP 130/74 Blood Pressure Location Rt brachial Position Sitting Pulse 97 Pulse Source Pulse Oximeter Pulse Oximetry (%) 98 Oxygen Delivery Method Room Air Intake Visit Reasons: PE/ hyoerlipid Intake Note: Pt is here today for PE. Allergies No Known Allergies Allergy (Verified 06/24/24 08:22) Medication List - Last Reconciled 06/24/24 by Sarah Funes MD calcium carbonate-vitamin D2 600 mg calcium- 200 unit tabs PO multivitamin 1 tab PO DAILY Tobacco use date assessed: 06/24/24 Dental Screening Dental Screen Date: 01/30/24 HPI PE/ hyoerlipid HPI Details Pt presents for PE. PFSH Medical History (Updated 06/24/24 @ 08:47 by Sarah Funes MD) Hyperlipidemia Mammogram normal Chondrodermatitis nodularis helicis Osteopenia Bacteriuria, asymptomatic Surgical History Hx of right cataract extraction History of total abdominal hysterectomy and bilateral salpingo-oophorectomy History of colonoscopy Family History Father HTN (hypertension) Colon cancer Mother CVD (cardiovascular disease) Osteoporosis Brother No problems noted. Brother No problems noted. 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, walks daily for 4 miles, retired teacher Housing: Condominium Alcohol intake: never Patient Tobacco Use Status: Never used Tobacco e-Cigarette/Vaping Use: Never Used service: No Current occupational status: retired Cognitive needs: No Hearing needs: No Vision needs: Yes Questionnaire PHQ-9 Over the last 2 weeks, how often have you been bothered by any of the following problems? 1. Little interest or pleasure in doing things: not at all 2. Feeling down, depressed, or hopeless: not at all 3. Trouble falling or staying asleep, or sleeping too much: not at all 4. Feeling tired or having little energy: not at all 5. Poor appetite or overeating: not at all 6. Feeling bad about yourself - or that you are a failure or have let yourself or your family down: not at all 7. Trouble concentrating on things, such as reading the newspaper or watching television: not at all 8. Moving or speaking so slowly that other people could have noticed. Or the opposite - being so fidgety or restless that you have been moving around a lot more than usual: not at all 9. Thoughts that you would be better off or of hurting yourself in some way: not at all Total score: 0 Depression Screening Interpretation: Negative Depression Screening Done: Yes Source: Developed by Drs. Monroe Perez, Alexus Madrigal, Doug Nascimento and colleagues, with an educational shira from [employer] Thrive Questionnaire Date Thrive assessed: 06/17/24 I am a: Patient What is your living situation today?: I have a steady place to live Within the past 12 months, did the food you bought not last and you didn't have the money to get more?: Never true Within the past 12 months, did you worry whether your food would run out before you got money to buy more?: Never true Do you have trouble paying for medicines?: No Do you have trouble getting transportation to medical appointments?: No Do you have trouble paying your heating and electricity bill?: No Do you have trouble taking care of your child, family member or friend?: No Do you have trouble with day-to-day activities such as bathing, preparing meals, shopping, managing finances, etc.?: No Are you currently unemployed and looking for a job?: No Are you interested in more education?: No Please select the resources that you would like help with: None Currently or been in a relationship where the following occur: No concerns reported THRIVE Score: 0 AUDIT C Alcohol Use Questionnaire (AUDIT-C) 1. How often do you have a drink containing alcohol?: Never Total Score: 0 ALEXANDER-7 AMB Questionnaire ALEXANDER-7 Date ALEXANDER - 7 assessed: 06/24/24 Feeling nervous, anxious, or on edge: 0 = Not at all Not being able to stop or control worryin = Not at all Worrying too much about different things: 0 = Not at all Trouble relaxin = Not at all Being so restless that it is hard to sit still: 0 = Not at all Becoming easily annoyed or irritable: 0 = Not at all Feeling afraid as if something awful might happen: 0 = Not at all Total ALEXANDER-7 score (0-4 normal; 5-9 mild; 10-14 moderate; 15-21 severe): 0 Source: Developed by Drs. Monroe Perez, Alexus Madrigal, Doug Nascimento and colleagues, with an educational shira from [employer] ALEXANDER-7 Assessment Billing ALEXANDER-7 Assessment Tool: ALEXANDER-7 Assessment 50506 Review of Systems Const All systems reviewed & are unremarkable except as noted in HPI and below Reports no additional complaints Eyes Reports no additional complaints ENT Reports no additional complaints Card Reports no additional complaints Resp Reports no additional complaints GI Reports no additional complaints Reports no additional complaints Neuro Reports no additional complaints Physical exam (Primary Care) Vital Signs: Last Vital Signs Pulse 97 06/24/24 08:20 BP 130/74 06/24/24 08:20 Pulse Ox 98 06/24/24 08:20 Oxygen Delivery Method Room Air 06/24/24 08:20 BMI result Body Mass Index 23.7 Tobacco/Smoking Status: Tobacco use Status Tobacco use date assessed 06/24/24 06/24/24 08:27 Patient Tobacco Use Status Never used Tobacco 06/24/24 08:27 e-Cigarette/Vaping Use Never Used 06/24/24 08:27 PHQ-9: PHQ-9 Score PHQ-9: Total score 0 06/24/24 08:27 Depression Screening Interpretation: Negative Thrive Assessment: Date of Thrive Assessment Date Thrive assessed 06/17/24 06/24/24 08:27 Currently or been in a relationship where the following occur: No concerns reported Const General: no acute distress HENMT Head: Yes normal to inspection Ears: hearing grossly normal bilaterally Mouth: Normal oral and palatal mucosa present Throat: Yes posterior oropharynx normal Eyes General: appearance normal, both eyes and all related structures Resp Effort & Inspection: normal respiratory effort Auscultation: clear to auscultation bilaterally Cardio Rhythm: regular rhythm Heart sounds: S1 normal heart sound present and S2 normal heart sound present GI Inspection: Yes normal to inspection Palpation (GI): Soft to palpation Percussion: Yes normal to percussion Auscultation: normal bowel sounds Assessment and Plan Assessment & Plan (1) Osteopenia: Comment: DEXA 11/2019 T score -1.3 femur Code(s): M85.80 - Other specified disorders of bone density and structure, unspecified site Plan: check DEXA, continue vitamin-D supplement and regular exercises (2) Annual physical exam: Code(s): Z00.00 - Encounter for general adult medical examination without abnormal findings Plan: Well-balanced diet regular exercise discussed with the patient. She will return for fasting blood work (3) Vitamin D deficiency: Code(s): E55.9 - Vitamin D deficiency, unspecified Orders: Orders XR DEXA axial skeleton Today M85.80 - Other specified disorders of bone density and structure, unspecified site, Z00.00 - Encounter for general adult medical examination without abnormal findings Comprehensive [place]. Panel Fast 1 Year E55.9 - Vitamin D deficiency, unspecified, M85.80 - Other specified disorders of bone density and structure, unspecified site, Z00.00 - Encounter for general adult medical examination without abnormal findings Complete Blood Count Auto Diff 1 Year E55.9 - Vitamin D deficiency, unspecified, M85.80 - Other specified disorders of bone density and structure, unspecified site, Z00.00 - Encounter for general adult medical examination without abnormal findings Vitamin D 25-OH Total 1 Year E55.9 - Vitamin D deficiency, unspecified, M85.80 - Other specified disorders of bone density and structure, unspecified site, Z00.00 - Encounter for general adult medical examination without abnormal findings Lipid Panel 1 Year E55.9 - Vitamin D deficiency, unspecified, M85.80 - Other specified disorders of bone density and structure, unspecified site, Z00.00 - Encounter for general adult medical examination without abnormal findings Coding Level of Care Code Est Pt Prev Care >65y(65068) Diagnoses Osteopenia M85.80 Annual physical exam Z00.00 Vitamin D deficiency E55.9 Additional Codes ALEXANDER-7 Assessment Billing - ALEXANDER-7 Assessment Tool: ALEXANDER-7 Assessment 32385 ([id number])
== END 2024-06-24 08:53 | disposition home or self-care (01) ==
PROVIDERS: PCP Internal Medicine; Visit Provider Internal Medicine
DX: Z00.00 Encounter for general adult medical examination without abnormal findings (principal); M85.80 Other specified disorders of bone density and structure, unspecified site; E55.9 Vitamin D deficiency, unspecified
CPT/HCPCS: 99397

== ENCOUNTER 2024-06-25 06:29 | Outpatient (REF) | payer MEDICARE, OTHER, SELFPAY ==
[2024-06-25 10:05] LABS: MANUAL DIFF FLAG NO
[2024-06-25 10:09] LABS: Basophils Absolute Auto 0.1 X10*3/uL (0.0-0.2); Basophils Percent Auto 1.1 % (0-2); Eosinophils Absolute Auto 0.2 X10*3/uL (0.0-0.4); Eosinophils Percent Auto 3.6 % (0-4); Hematocrit 45.2 % (37.0-47.0); Hemoglobin 14.8 g/dl (12.0-16.0); Imm Gran Abs Auto 0.01 X10*3/uL (0.00-0.03); Imm Gran Pct Auto 0.2 % (0.0-0.4); Lymphocytes Absolute Auto 1.6 X10*3/uL (1.2-4.9); Lymphocytes Percent Auto 28.5 % (20-40); Mean Corpuscular HGB Conc 32.7 g/dl (31.0-35.0); Mean Corpuscular Volume 94.8 fL (80.0-98.0); Mean Platelet Volume 10.7 fL (9.4-12.3); Monocytes Absolute Auto 0.6 X10*3/uL (0.1-1.2); Monocytes Percent Auto 10.2 % (2-11); Neutrophils Absolute Auto 3.1 x10*3/uL (2.0-8.3); Neutrophils Percent Auto 56.4 % (45-73); Platelet Count 227 X10*3/uL (160-400); Red Blood Count 4.77 X10*6/uL (4.20-5.50); Red Cell Distribution Width 12.1 % (11.0-16.0); White Blood Count 5.5 X10*3/uL (4.8-10.8)
[2024-06-25 10:41] LABS: Alanine Aminotransferase 13 U/L (0-31); Albumin Level 4.1 g/dL (3.5-5.0); Alkaline Phosphatase 82 U/L (39-117); Anion Gap 10 (12-20); Aspartate Amino Transferase 20 U/L (5-31); Bilirubin Total 0.4 mg/dL (0.0-1.0); Blood Urea Nitrogen 15 mg/dL (9-16); Calcium 9.4 mg/dL (8.4-10.2); Carbon Dioxide 27 mmol/L (22-29); Chloride 109 mmol/L (96-108); Cholesterol 208 mg/dL (<200); Estimated Glomerular Filt Rate > 60; Glucose Fasting 86 mg/dL (60-99); HDL Cholesterol 76 mg/dL (>40); LDL Cholesterol Calculated 115 mg/dL (<100); Sodium 142 mmol/L (135-145); Total Protein 6.5 g/dL (6.5-8.0); Triglycerides 86 mg/dL (<150)
[2024-06-25 10:45] LABS: TSH reflex Free T4 1.89 uIU/mL (0.32-4.0); Vitamin D 25-OH Total 63.9 ng/mL (>30)
== END 2024-06-25 06:30 | disposition home or self-care (01) ==
LOC: HO.HMGCLDS 06:29
PROVIDERS: PCP Internal Medicine; Visit Provider Internal Medicine
DX: Z00.00 Encounter for general adult medical examination without abnormal findings (principal); E78.5 Hyperlipidemia, unspecified; M85.80 Other specified disorders of bone density and structure, unspecified site; E55.9 Vitamin D deficiency, unspecified
CPT/HCPCS: 36415; 80053; 80061; 82306; 84443; 85025

== ENCOUNTER 2024-07-11 09:22 | Outpatient (AMB) | payer MEDICARE, OTHER, SELFPAY ==
--- NOTE | 2024-07-11 09:31 | AM.OFFWIN_ITS ---
Intake Vital Signs 07/11/24 09:40 Weight 156 lb BP 110/80 Blood Pressure Location Rt brachial Position Sitting Pulse 100 Pulse Source Pulse Oximeter Pulse Oximetry (%) 97 Oxygen Delivery Method Room Air Intake Visit Reasons: EP-UTI? Intake Note: Patient here for frequent urination, left lower back pain. Patient Tobacco Use Status: Never used Tobacco Allergies No Known Allergies Allergy (Verified 07/11/24 09:41) Do you need a note to return to daycare/school/sports/work: No HPI EP-UTI? HPI Details This note is constructed using voice recognition software. While every effort has been made to ensure accuracy, trimmer machine errors may have been included. The patient is a 79 year old female who presents to the clinic today with dysuria for the past few days. She reports urgency, frequency, and mild burning with urination. She notes that she has had some kidney stones back in the 1970s, which were pretty extensive and involved surgery for repair so she has been always a little bit more vigilant and paying attention to her to her urinary tract symptoms. When the symptoms started she did increase her hydration, however she did not get evaluated as she has been responsible for the care of her brother. She does attribute the care of her brother to some slightly decreased hydration efforts over the past few days, and has since tried to reach increase that hydration efforts. She denies fever, chills, body aches, back pain, blood in the urine. [facility] Medical History (Updated 06/24/24 @ 08:47 by Sarah Funes MD) Hyperlipidemia Mammogram normal Chondrodermatitis nodularis helicis Osteopenia Bacteriuria, asymptomatic Surgical History Hx of right cataract extraction History of total abdominal hysterectomy and bilateral salpingo-oophorectomy History of colonoscopy Family History Father HTN (hypertension) Colon cancer Mother CVD (cardiovascular disease) Osteoporosis Brother No problems noted. Brother No problems noted. 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, walks daily for 4 miles, retired teacher Housing: Condominium Alcohol intake: never Patient Tobacco Use Status: Never used Tobacco e-Cigarette/Vaping Use: Never Used service: No Current occupational status: retired Cognitive needs: No Hearing needs: No Vision needs: Yes Review of Systems Const All systems reviewed & are unremarkable except as noted in HPI and below Physical Exam Vital Signs: Last Vital Signs Pulse 100 07/11/24 09:40 BP 110/80 07/11/24 09:40 Pulse Ox 97 07/11/24 09:40 Oxygen Delivery Method Room Air 07/11/24 09:40 Const General: cooperative, healthy appearing, comfortable, no acute distress and alert Orientation/consciousness: patient oriented x3 Limitations: no limitations Resp Effort & Inspection: normal respiratory effort and able to speak in complete sentences Auscultation: clear to auscultation bilaterally Cardio Rate: regular rate Heart sounds: S1 normal heart sound present, S2 normal heart sound present, no click, no gallops, no murmurs and no rubs General: Yes no CVA tenderness Back/Spine/Pelvis Back: no CVA tenderness Skin General skin exam: no rashes or lesions noted, elasticity normal and turgor normal Neuro General: patient oriented x3 Extrem General: Yes normal to inspection, Yes full ROM, Yes capillary refill normal and Yes normal exam except as noted Psych Appearance: grossly normal Mental Status: mental status grossly normal Speech and movement: Normal speech and movement present Affect: normal affect Results AMB Urinalysis, Automated UA Leukoctes 500 Vickie/uL Last Edit by CLARITA Thibodeaux on 07/11/24 09: 42 UA Nitrite Positive Last Edit by CLARITA Thibodeaux on 07/11/24 09:42 UA Urobilinogen 0.2 mg/dL Last Edit by CLARITA Thibodeaux on 07/11/24 09:42 UA Protein 0 mg/dL Last Edit by CLARITA Thibodeaux on 07/11/24 09:42 UA pH 7.0 Last Edit by CLARITA Thibodeaux on 07/11/24 09:42 UA Blood 0 Renzo/uL Last Edit by CLARITA Thibodeaux on 07/11/24 09:42 UA Specific [place] 1.010 Last Edit by CLARITA Thibodeaux on 07/11/24 09:42 UA Ketone Negative Last Edit by CLARITA Thibodeaux on 07/11/24 09:42 UA Bilirubin 0 mg/dL Last Edit by CLARITA Thibodeaux on 07/11/24 09:42 UA Glucose 0 mg/dL Last Edit by CLARITA Thibodeaux on 07/11/24 09:42 Assessment & Plan Assessment & Plan (1) UTI (urinary tract infection): Code(s): N39.0 - Urinary tract infection, site not specified Qualifiers: Urinary tract infection type: acute cystitis Hematuria presence: without hematuria Qualified Code(s): N30.00 - Acute cystitis without hematuria Plan: Advised to increase hydration. Antiviral to requested pharmacy. Advised patient to take until completed. Advised patient to follow up with ongoing symptoms or worsening symptoms, which she may do so with either primary care provider or return to clinic. Plan See above for full details and plan. Orders: Orders AMB Urinalysis Automated Today Z13.9 - Encounter for screening, unspecified Medications: New ciprofloxacin HCl 250 mg PO BID 3 days 6 tabs 0RF Coding Level of Care Code Est Pt Level 3 (10334) Diagnoses Acute cystitis without hematuria N30.00 Urinary tract infection type: acute cystitis Hematuria presence: without hematuria
[2024-07-11 09:40] VITALS: BP 110/80; PULSE 100; O2SAT 97
== END 2024-07-11 10:09 | disposition home or self-care (01) ==
PROVIDERS: PCP Internal Medicine; Visit Provider Registered Nurse
DX: N30.00 Acute cystitis without hematuria (principal); Z13.9 Encounter for screening, unspecified
CPT/HCPCS: 81003; 99213

== ENCOUNTER 2024-07-16 10:19 | Outpatient (AMB) | payer MEDICARE, OTHER, SELFPAY ==
--- NOTE | 2024-07-16 10:33 | AM.OFFWIN_ITS ---
Intake Vital Signs 07/16/24 10:35 Height 5 ft 8 in Weight 156 lb BMI 23.7 BP 128/84 Blood Pressure Location Lt brachial Position Sitting Pulse 86 Pulse Source Pulse Oximeter Temp 98.7 F Temp Source Oral Pulse Oximetry (%) 98 Oxygen Delivery Method Room Air Intake Visit Reasons: EP UTI/not cleared Intake Note: pt c/o urinary urgency and lower back pain. Ongoing Patient Tobacco Use Status: Never used Tobacco Allergies No Known Allergies Allergy (Verified 07/16/24 10:34) Do you need a note to return to daycare/school/sports/work: No HPI HPI Comments History of Present Illness Details 79 y/o female patient who presents to [facility] walk in clinic with c/o Urinary symptoms. She was seen recently for similar symptoms and was treated with Cipro x 3 days. Pt still has symptoms and does not feel like Abx worked. [facility] Medical History (Updated 06/24/24 @ 08:47 by Sarah Funes MD) Hyperlipidemia Mammogram normal Chondrodermatitis nodularis helicis Osteopenia Bacteriuria, asymptomatic Surgical History Hx of right cataract extraction History of total abdominal hysterectomy and bilateral salpingo-oophorectomy History of colonoscopy Family History Father HTN (hypertension) Colon cancer Mother CVD (cardiovascular disease) Osteoporosis Brother No problems noted. Brother No problems noted. 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, walks daily for 4 miles, retired teacher Housing: Condominium Alcohol intake: never Patient Tobacco Use Status: Never used Tobacco e-Cigarette/Vaping Use: Never Used service: No Current occupational status: retired Cognitive needs: No Hearing needs: No Vision needs: Yes Physical Exam Vital Signs: Last Vital Signs Temp 98.7 F 07/16/24 10:35 Pulse 86 07/16/24 10:35 BP 128/84 07/16/24 10:35 Pulse Ox 98 07/16/24 10:35 Oxygen Delivery Method Room Air 07/16/24 10:35 BMI result Body Mass Index 23.7 Const General: cooperative and no acute distress Orientation/consciousness: patient oriented x3 General: Yes no CVA tenderness Back/Spine/Pelvis Back: no CVA tenderness Neuro General: patient oriented x3, gait normal and moves all extremities Psych Speech and movement: Normal speech and movement present Results AMB Urinalysis, Automated UA Leukoctes 0 Vickie/uL Last Edit by Mehul Harmon CMA on 07/16/24 10:45 UA Nitrite Negative Last Edit by Mehul Harmon CMA on 07/16/24 10:45 UA Urobilinogen 0.2 mg/dL Last Edit by Mehul Harmon CMA on 07/16/24 10:45 UA Protein 0 mg/dL Last Edit by Mehul Harmon CMA on 07/16/24 10:45 UA pH 6.0 Last Edit by Mehul Harmon CMA on 07/16/24 10:45 UA Blood 0 Renzo/uL Last Edit by Mehul Harmon CMA on 07/16/24 10:45 UA Specific [place] 1.010 Last Edit by Mehul Harmon CMA on 07/16/24 10:45 UA Ketone Negative Last Edit by Mehul Harmon CMA on 07/16/24 10:45 UA Bilirubin 0 mg/dL Last Edit by Mehul Harmon CMA on 07/16/24 10:45 UA Glucose 0 mg/dL Last Edit by Mehul Harmon CMA on 07/16/24 10:45 Results Reviewed Results Reviewed: Laboratory Last Values Urine pH (Auto) 6.0 07/16/24 10:33 Specific [place] (Auto) 1.010 07/16/24 10:33 Urine Protein (Auto) 0 mg/dL 07/16/24 10:33 Glucose (UA)(Auto) 0 mg/dL 07/16/24 10:33 Urine Ketones (Auto) Negative 07/16/24 10:33 Urine Blood (Auto) 0 Renzo/uL 07/16/24 10:33 Urine Nitrite (Auto) Negative 07/16/24 10:33 Urine Bilirubin (Auto) 0 mg/dL 07/16/24 10:33 Urine Urobilinogen (Auto) 0.2 mg/dL 07/16/24 10:33 Leukocyte Esterase (Auto) 0 Vickie/uL 07/16/24 10:33 Assessment & Plan Assessment & Plan (1) UTI (urinary tract infection): Code(s): N39.0 - Urinary tract infection, site not specified Qualifiers: Hematuria presence: without hematuria Urinary tract infection type: acute cystitis Qualified Code(s): N30.00 - Acute cystitis without hematuria Plan: Ordered Urine culture. Advised push fluids U/A in office normal Orders: Orders AMB Urinalysis Automated Today Z13.9 - Encounter for screening, unspecified UA CC w/rflx Micro + Cult Today N30.00 - Acute cystitis without hematuria Coding Level of Care Code Est Pt Level 3 (71921) Diagnoses Acute cystitis without hematuria N30.00 Hematuria presence: without hematuria Urinary tract infection type: acute cystitis Time Spent (min) 15
[2024-07-16 10:35] VITALS: BP 128/84; PULSE 86; TEMP 37.1; O2SAT 98; BMI 23.7
== END 2024-07-16 10:58 | disposition home or self-care (01) ==
PROVIDERS: PCP Internal Medicine; Visit Provider Nurse Practitioner Family
DX: Z13.9 Encounter for screening, unspecified (principal); N30.00 Acute cystitis without hematuria
CPT/HCPCS: 81003; 99213

== ENCOUNTER 2024-07-16 10:49 | Outpatient (REF) | payer MEDICARE, OTHER, SELFPAY ==
[2024-07-16 13:18] LABS: Appearance Urine Clear; Color Urine Yellow; Glucose Urine UA Negative (Negative); Leukocyte Esterase Urine Trace (Negative); Nitrite Urine Negative (Negative); PH 6.5 (5.0-9.0); Specific Gravity - Urine <= 1.005 (1.005-1.025); UMIC TRIGGER UACC YES; Urine Blood Negative (Negative); Urine Ketones Negative (Negative); Urine Protein Negative (Neg-Trace)
[2024-07-16 13:25] LABS: Bacteria Urine None Seen (None Seen); Hyaline Casts Urine 0-2 /LPF (0-2); RBC Urine 0-2 /HPF (0-2); Squamous Epithelial Cell Urine 0-2 /HPF (0-2); WBC Urine 0-5 /HPF (0-5)
== END 2024-07-16 10:50 | disposition home or self-care (01) ==
LOC: HO.LAB 10:49
PROVIDERS: Visit Provider Nurse Practitioner Family
DX: N39.0 Urinary tract infection, site not specified (principal)
CPT/HCPCS: 81001

== ENCOUNTER 2024-07-19 08:04 | Outpatient (REF) | payer MEDICARE, OTHER, SELFPAY ==
--- NOTE | ~2024-07-19 | MM_ITS ---
EXAMINATION: BONE DENSITOMETRY CLINICAL INDICATION: Other specified disorders of bone density and structure. COMPARISON: Previous BD dated 11/15/2019 and baseline BD dated 06/12/2008. TECHNIQUE: Using a Shout DXA System (software version: 13.1) manufactured by [employer], dual-energy x-ray absorptiometry was performed of the lumbar spine and left hip. The images are of good technical quality. Summary results are attached. FINDINGS: LEFT FEMUR, NECK: Current: BMD 0.949 g/cm2, Z-score 1.4, T-score -0.6, normal. Prior: BMD 0.852 g/cm2. Baseline: BMD 0.867 g/cm2. LEFT FEMUR, TOTAL: Current: BMD 0.787 g/cm2, Z-score 0.1, T-score -1.8, osteopenia, 7.8% decrease from previous, 19.7% decrease from baseline (<5% change is not significant). Prior: BMD 0.854 g/cm2. Baseline: BMD 0.980 g/cm2. AP SPINE L1-L4: Current: BMD 1.043 g/cm2, Z-score 0.6, T-score -1.1, osteopenia, 8.1% decrease from previous, 5.4% decrease from baseline (<5% change is not significant). Prior: BMD 1.135 g/cm2. Baseline: BMD 1.103 g/cm2. IDENTIFIED RISK FACTORS: Menopause, hysterectomy, history of fracture (adult), bilateral oophorectomy. HISTORY OF FRACTURE: Humerus. MEDICATIONS: Calcium supplements or multivitamin, vitamin D. MM/XR DEXA axial skeleton IMPRESSION: 1. DIAGNOSIS: Osteopenia based on the lowest T-score value of -1.8 in the total femur applying World Health Organization criteria. 2. 10-YEAR FRACTURE RISK PREDICTION, FRAX: Major osteoporotic fracture (clinical spine, forearm, hip or shoulder) 14.1%. Hip fracture 2.0%. 3. Treatment Recommendations: NOF guidelines recommend consideration for treatment in postmenopausal women and men age 50 and older presenting with the following: -A hip or vertebral (clinical or morphometric) fracture. -T-score less than or equal to -2.5 at the femoral neck or spine after appropriate evaluation to exclude secondary causes. -Low bone mass at the hip or spine and a 10-year fracture probability by FRAX of greater than or equal to 3% for hip fracture or greater than or equal to 20% for major osteoporotic fracture based on the [place] adapted WHO algorithm. 4. Other Recommendations: All treatment decisions require clinical judgment and consideration of individual patient factors, including patient preferences, comorbidities, previous drug use, risk factors not captured in the FRAX model (e.g. frailty, falls, vitamin D deficiency, increased bone turnover, interval significant decline in bone density) and possible under or overestimation of fracture risk by FRAX. Additional medical evaluation for secondary cause of low bone mineral density may be appropriate. FUTURE SCAN RECOMMENDATION: People with diagnosed cases of osteoporosis or at high risk for fracture should have regular bone mineral density tests. For patients eligible for Medicare, routine testing is allowed once every 2 years. The testing frequency can be increased to one year for patients who have rapidly progressing disease, those who are receiving or discontinuing medical therapy to restore bone mass, or have additional risk factors. Electronically signed by: Tobias Gar MD 07/23/2024 02:44 PM EDT
== END 2024-07-19 08:05 | disposition home or self-care (01) ==
LOC: HO.MAMMO 08:04
PROVIDERS: PCP Internal Medicine; Visit Provider Internal Medicine
DX: Z13.820 Encounter for screening for osteoporosis (principal); M85.80 Other specified disorders of bone density and structure, unspecified site; Z78.0 Asymptomatic menopausal state
CPT/HCPCS: 77080

== ENCOUNTER 2024-11-28 08:04 | Outpatient (AMB) | payer MEDICARE, OTHER, SELFPAY ==
[2024-11-28 08:27] VITALS: BP 122/84; PULSE 96; TEMP 36.4; O2SAT 99
--- NOTE | 2024-11-28 08:27 | MHC.OFFWIV ---
Intake Vital Signs 11/28/24 08:27 Weight 152 lb BP 122/84 Blood Pressure Location Rt brachial Position Sitting Pulse 96 Pulse Source Pulse Oximeter Temp 97.6 F Temp Source Oral Pulse Oximetry (%) 99 Oxygen Delivery Method Room Air Intake Visit Reasons: EP fever, ? intestinal issues Intake Note: Patient here for cramping and feeling feverish which has been going on for over 1 week on and off. Patient Tobacco Use Status: Never used Tobacco Allergies No Known Allergies Allergy (Verified 11/28/24 08:29) Do you need a note to return to daycare/school/sports/work: No HPI HPI Comments History of Present Illness Details 79 y/o female patient who presents to the walk in clinic with c/o URI and GI symptoms. Pt c/o Loose to soft stools associated with Abdominal cramping. Denies any changes to diet. Denies fevers, chills, nausea or vomiting. PFSH Medical History (Updated 06/24/24 @ 08:47 by Sarah Funes MD) Hyperlipidemia Mammogram normal Chondrodermatitis nodularis helicis Osteopenia Bacteriuria, asymptomatic Surgical History Hx of right cataract extraction History of total abdominal hysterectomy and bilateral salpingo-oophorectomy History of colonoscopy Family History Father HTN (hypertension) Colon cancer Mother CVD (cardiovascular disease) Osteoporosis Brother No problems noted. Brother No problems noted. 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, walks daily for 4 miles, retired teacher Housing: Condominium Alcohol intake: never Patient Tobacco Use Status: Never used Tobacco e-Cigarette/Vaping Use: Never Used service: No Current occupational status: retired Cognitive needs: No Hearing needs: No Vision needs: Yes Review of Systems Const All systems reviewed & are unremarkable except as noted in HPI and below Physical Exam Vital Signs: Last Vital Signs Temp 97.6 F 11/28/24 08:27 Pulse 96 11/28/24 08:27 BP 122/84 11/28/24 08:27 Pulse Ox 99 11/28/24 08:27 Oxygen Delivery Method Room Air 11/28/24 08:27 Const General: cooperative and no acute distress Orientation/consciousness: patient oriented x3 HEENT Head: Yes normocephalic Ears: external ears normal Face and sinus: Yes sinuses nontender Mouth: moist mucous membranes Resp Effort & Inspection: normal respiratory effort and able to speak in complete sentences Auscultation: clear to auscultation bilaterally Cardio Heart sounds: S1 normal heart sound present and S2 normal heart sound present GI Inspection: Yes normal to inspection Palpation (GI): Soft to palpation, not firm, nontender, no guarding, not rigid and No hepatosplenomegaly present Auscultation: normal bowel sounds Neuro General: patient oriented x3, gait normal and moves all extremities Psych Speech and movement: Normal speech and movement present Assessment & Plan Assessment & Plan (1) GI symptoms: Code(s): R19.8 - Other specified symptoms and signs involving the digestive system and abdomen Plan: Avoid spicy foods Avoid Oily foods BLAND diet Hydrate well with soups (2) Acute respiratory disease: Code(s): J06.9 - Acute upper respiratory infection, unspecified Plan: Rest and hydrate well Ordered SARs Orders: Orders SARS-CoV2/FLU/RSV Today J06.9 - Acute upper respiratory infection, unspecified Coding Level of Care Code Est Pt Level 3 (43463) Diagnoses GI symptoms R19.8 Acute respiratory disease J06.9 Time Spent (min) 15
== END 2024-11-28 09:14 | disposition home or self-care (01) ==
PROVIDERS: PCP Internal Medicine; Visit Provider Nurse Practitioner Family
DX: R19.8 Other specified symptoms and signs involving the digestive system and abdomen (principal); J06.9 Acute upper respiratory infection, unspecified

== ENCOUNTER 2024-11-28 08:04 | Outpatient (REF) | payer MEDICARE, OTHER, SELFPAY ==
--- OUTSIDE RECORDS SUMMARY | 2024-11-28 09:33 | XMS_ITS | Data Portability ---
Author Organization [facility], [address] Address [address] [place] [address] Assessment No assessment recorded. Plan of Treatment Reminders Order Date Submit Date Provider Last Modified By Organization Details Last Modified Time Details Appointments None recorded. Lab urinalysis , dipstick 2022 023 [email or web address] 247 _[facility], [address] [place] [address], [address], 09:54:36 culture, urine 2022 023 PAGE [facility], [address] [place] [address], [place], [address], 14:06:45 Referral None recorded. Procedures None recorded. Surgeries None recorded. Imaging None recorded. Medication Orders Macrobid 100 mg capsule 2022 023 [facility]acy #[id number], [address] [facility], [place], [address], 09:54:38 Patient TargetsNo targets recorded. Patient InstructionsNo instructions recorded. Reason for Referral None Reported. Results Created Date Observation Date Name Description Value Unit Range Abnormal Flag Note LastModifiedBy Organization Detail LastModifiedTime 01/07/2001/10/2023 URINE CULTU AYSE DE urine culture, routine FINAL REPORT abnormal Not Available [facility] ([facility]) [address] [facility], [place], [address], 01/10/2023 12:06:54 01/07/2001/10/2023 URINE CULTU RE, ROUTI NE result 1 ESCHER ICHIA COLI abnormal Cefaz sloane <=4 ug/mL Cefaz sloane with an TIARRA <=16 predi cts susce ptibi lity to the oral agent s cefac barney, cefdi isabella, cefpo doxim e, cefpr ozil, cefur oxime , cepha lexin , and lorac arbef when used for thera py of uncom plica edgardo urina ry tract infec tions due to E. coli, Klebs iella pneum oniae , and Prote us mirab ilis. Great er than 100,0 00 colon y formi ng units per mL Not Available [facility] ([facility]) [address] [facility], [place], [address], 01/10/2023 12:06:54 01/07/20 23 01/10/2023 URINE CULTU RE, ROUTI NE antimicrobia l susceptibili ty COMMEN T S = Susce ptibl e; I = Inter media te; R = Resis tant P = Posit bessy; N = Negat bessy MICS are expre ssed in micro grams per mL Antib iotic RSLT# 1 RSLT# 2 RSLT# 3 RSLT# 4 Amoxi cilli n/Cla vulan ic Acid S Ampic illin S Cefep honey S Ceftr iaxon e S Cefur oxime S Cipro floxa mi S Ertap enem S Genta micin S Imipe nem S Levof loxac in S Merop enem S Nitro furan toin I Piper acill in/Ta zobac sanders S Tetra cycli ne S Tobra mycin S Trime thopr im/Cote lfa S Not Available [facility] ([facility]) [address] [facility], [place], [address], 01/10/2023 12:06:54 01/07/20 23 01/06/2023 urina lysis , dipst ick Unknown Analyte Normal = light yellow Not Available [address] [address] [place] [address], [place], [address], 01/06/2023 09:02:45 01/07/20 23 01/06/2023 urina lysis , dipst ick Unknown Analyte Yellow Not Available alejandro [address], [place], [address], 01/06/2023 09:02:45 01/07/2001/06/2023 urina lysis , dipst ick Unknown Analyte Normal = clear Not Available ian anthony [address], [place], [place], [address], 01/06/2023 09:02:45 01/07/2001/06/2023 urina lysis , dipst ick Unknown Analyte Cloudy Not Available alejandro [address], [place], [place], [address], 01/06/2023 09:02:45 01/07/2001/06/2023 urina lysis , dipst ick Unknown Analyte Normal = negati ve Not Available ian anthony [address], [place], [address], 01/06/2023 09:02:45 01/07/2001/06/2023 urina lysis , dipst ick Unknown Analyte Negati ve Not Available ian anthony [address], [place], [place], [address], 01/06/2023 09:02:45 01/07/2001/06/2023 urina lysis , dipst ick Unknown Analyte Normal = Negati ve Not Available ian anthony [address], [place], [address], 01/06/2023 09:02:45 01/07/2001/06/2023 urina lysis , dipst ick Unknown Analyte Negati ve Not Available ian anthony [address], [place], [address], 01/06/2023 09:02:45 01/07/20 23 01/06/2023 urina lysis , dipst ick Unknown Analyte Normal = Negati ve Not Available 2099ian anthony [address], [place], [address], 01/06/2023 09:02:45 01/07/20 23 01/06/2023 urina lysis , dipst ick Unknown Analyte Negati ve Not Available 2099ian anthony [address], [place], [address], 01/06/2023 09:02:45 01/07/2001/06/2023 urina lysis , dipst ick Unknown Analyte Normal = 1.010, 1.015, 1.020 Not Available [facility] [address], [place], [address], 01/06/2023 09:02:45 01/07/20 23 01/06/2023 urina lysis , dipst ick Unknown Analyte 1.020 Not Available [address] [place] [address], [place], [address], 01/06/2023 09:02:45 01/07/20 23 01/06/2023 urina lysis , dipst ick Unknown Analyte Normal = Negati ve Not Available [facility] [address], [place], [address], 01/06/2023 09:02:45 01/07/20 23 01/06/2023 urina lysis , dipst ick Unknown Analyte Modera te Not Available [address]99ian anthony [address], [place], [address], 01/06/2023 09:02:45 01/07/20 23 01/06/2023 urina lysis , dipst ick Unknown Analyte Normal = 6.5, 7.0, 7.5, 8.0 Not Available ian anthony [address], [place], [address], 01/06/2023 09:02:45 01/07/2001/06/2023 urina lysis , dipst ick Unknown Analyte 6.5 Not Available [facility] [address], [place], [address], 01/06/2023 09:02:45 01/07/2001/06/2023 urina lysis , dipst ick Unknown Analyte Normal = Negati ve Not Available ian anthony [address], [place], [address], 01/06/2023 09:02:45 01/07/2001/06/2023 urina lysis , dipst ick Unknown Analyte 100 mg/dL Not Available [facility] [address], [place], [address], 01/06/2023 09:02:45 01/07/2001/06/2023 urina lysis , dipst ick Unknown Analyte Normal = 0.2, 1.0 Not Available ian anthony [address], [place], [address], 01/06/2023 09:02:45 01/07/2001/06/2023 urina lysis , dipst ick Unknown Analyte 0.2 E.U./d L Not Available [facility] [address], [place], [address], 01/06/2023 09:02:45 01/07/20 23 01/06/2023 urina lysis , dipst ick Unknown Analyte Normal = Negati ve Not Available [facility] [address], [place], [address], 01/06/2023 09:02:45 01/07/20 23 01/06/2023 urina lysis , dipst ick Unknown Analyte Positi ve Not Available _ian anthony [address] [place], [address], 01/06/2023 09:02:45 01/07/20 23 01/06/2023 urina lysis , dipst ick Unknown Analyte Normal = Negati ve Not Available 2099[address] anthony [address] [place], [address], 01/06/2023 09:02:45 01/07/2001/06/2023 urina lysis , dipst ick Unknown Analyte Large Not Available alejandro [address], [address], 01/06/2023 09:02:45 Result Notes None recorded. Problems No Known Problems Procedures Surgical History Date Name Laterality Status Provider Name and Address Organization Details Recorded Time tonsillectomy completed Park Steele A - [facility] 01/06/2023 09:05:29 hysterectomy completed Park CHAVIRA - [facility] 01/06/2023 09:05:40 Imaging Results None recorded. Procedure Notes None recorded. Medical Equipment None Reported. Allergies No known drug allergies Medications Name Sig Start Date Stop Date Status Note LastModified by Organization Details LastModified Time azithromycin 250 mg tablet TAKE 2 TABLETS BY MOUTH TODAY, THEN TAKE 1 TABLET DAILY FOR 4 DAYS 01/06 completed Not Available Not Available Not Available erythromycin 5 mg/gram (0.5 %) eye ointment APPLY 0.5 INCH INTO THE EYE(S) 3 TIMES A DAY 01/06 completed Not Available Not Available Not Available nitrofuranto in monohydrate/ macrocrystal s 100 mg capsule TAKE 1 CAPSULE BY MOUTH EVERY 12 HOURS FOR 7 DAYS active Not Available Not Available No t Available Vitals Date Recorded Body height Provider Name an d Address Organization Details Last Updated DateTime 01/06/2023 172.72 cm Park Huynh PA - [facility] 01/06/2023 09:05:55 Date Recorded Body mass index (BMI) Body weight Provider Name and Address Organization Details Last Updated DateTime 01/06/2023 24.3 kg/m2 08246.78 g Park Hyunh PA - [facility] 01/06/2023 09:06:00 Date Recorded Pain severity - 0-10 verbal numeric rating [Score] - Reported Provider Name and Address Organization Details Last Updated DateTime 01/06/2023 5 Park Huynh PA - [facility] 01/06/2023 09:06:10 Date Recorded Oxygen saturation Oxygen saturation in Arterial blood by Pulse oximetry Provider Name and Address Organization Details Last Updated DateTime 01/06/2023 97 % 97 % Park Huynh PA - [facility] 01/06/2023 09:07:52 Date Recorded Heart rate Provider Name an d Address Organization Details Last Updated DateTime 01/06/2023 85 /min Park Huynh PA - [facility] 01/06/2023 09:07:55 Date Recorded Respiratory rate Provider Name a nd Address Organization Details Last Updated DateTime 01/06/2023 18 /min Park Huynh PA - [facility] 01/06/2023 09:07:57 Date Recorded Body temperature Provider Name a nd Address Organization Details Last Updated DateTime 01/06/2023 98 [degF] Park Huynh PA - [facility] 01/06/2023 09:08:02 Date Recorded Systolic blood pressure Diastolic blood pressure Provider Name and Address Organization Details Last Updated DateTime 01/06/2023 150 mm[Hg] 80 mm[Hg] Park Huynh PA - [facility] 01/06/2023 09:07:49 Social History Question Answer Notes LastModified by Organizat ion Details LastModified Time Tobacco Smoking Status Never Smoker Park jimenez PA - [facility] 01/06/2023 09:04:56 What Is Your Level Of Alcohol Consumption? Occasional Holidays Information not available 01/06/2023 How Many Times Per Week Do You Consume Alcohol? Less Than 1 Time Per Week Information not available 01/06/2023 Do You Use Any Illicit Or Recreational Drugs? No Information not available 01/06/2023 Have You Recently Traveled Abroad? No Information not available 01/06/2023 Do You Or Have You Ever Used Any Other Forms Of Tobacco Or Nicotine? No Information not available 01/06/2023 Sex: Unknown Functional Status None recorded. Mental Status None recorded. Family History Relationship Description Onset Age of this Age Resolved Age Notes LastModified by Organization Details LastModified Time Father Malignant tumor of colon [email or web address] Not available 2022 09:04:22 Mother Heart disease [email or web address] Not available 2022 09:04:28 Medical History No medical history recorded. Gynecological HistoryNo gynecological history recorded. Obstetrics History GPAL:G 0 P 0 0 0 0 Past Encounters Encounter ID Performer Location Encounter Start Date Encounter Closed Date Diagnosis/Indication Diagnosis SNOMED-CT Code Diagnosis ICD10 Code Diagnosis Note [id number] [address] [place] [address] 03/11/2018 08:08:37 03/11/2018 08:50:12 [id number] [address] [place] [address] 12/09/2018 08:30:44 12/09/2018 09:07:42 [id number] [address] [place] [address] 03/12/2018 08:06:33 03/12/2018 09:00:14 [id number] GREGORY GANNON MD [address] [place] [address] 01/06/2023 08:12:19 01/06/2023 09:57:29 Acute urinary tract infection 833497698 N39.0 Health Concerns Section Related Observation LastModified by Organization Detai ls LastModified Time None Recorded Concern Status LastModified by Organization Details LastModified Time None Recorded Advance Directives Directive None Recorded Payers Encounter Date Sequence Insurance Name Policy Number Policy Kendrick Covered Member ID Kendrick Member ID Guarantor Name 03/11/2018 1 [place] [employer] Concha M Guillermina [id number] Concha Sarmiento 03/12/2018 1 [place] [employer] Concha Sarmiento [id number] Concha Sarmiento 12/09/2018 1 [place] [facility] Concha Sarmiento [id number] Concha Sarmiento 01/06/2023 1 [place] [facility] Concha Sarmiento [id number] Concha Sarmiento 01/06/2023 2 [facility] [id number] Concha Sarmiento [id number] Concha Sarmiento Notes Date Note Type Note Provider Name and Address Organization Details Recorded Time 01/06/2023 text/html Urinary Complain t FemaleReported bypatient.UTI Symptoms:no blood in the urine; no pain during urination;urgency;ur inary frequency;flank pain Severity:mild Duration:started 01/05/2023Notes:urin wesley frequency, discomfort during urination, and left sided flank pain x1 day Hx of renal stones but not recently. Last UTI was 2 yrs ago. GREGORY GANNON MD [address] [place], [address], [place] - [facility] 01/06/2023 09:57:36 OBGyn Episode No OBEpisode recorded.
[2024-11-28 12:24] LABS: Influenza A PCR NEGATIVE (Negative); Influenza B PCR NEGATIVE (Negative); Resp Syncy Virus RNA Qual PCR NEGATIVE (Negative); SARS COV2 PCR INHOUSE NEGATIVE (Negative)
== END 2024-11-28 08:05 | disposition home or self-care (01) ==
LOC: HO.LNP 08:04
PROVIDERS: PCP Internal Medicine; Visit Provider Nurse Practitioner Family
DX: J06.9 Acute upper respiratory infection, unspecified (principal); R19.8 Other specified symptoms and signs involving the digestive system and abdomen
CPT/HCPCS: 0241U; 99212

== ENCOUNTER 2025-02-13 07:21 | Outpatient (REF) | payer MEDICARE, OTHER, SELFPAY ==
--- OUTSIDE RECORDS SUMMARY | 2025-02-13 07:23 | XMS_ITS | Patient Health Record ---
Author Organization [facility] Address [address] [place] [address] Care Team Providers Care Joint Yarner Name Role Phone Ben Borjas MD Primary Care Provider Unavaila Monroe Lopez Unavailable [phone] Reason For Referral No Information Medications Medication SIG (Take, Route, Fr equency, Duration) Notes Start Date End Date Status OsmoPrep 1.102-0.398 GM as directed Oral ly as directed for 1 dose 07/22/2014 Active Calcium 150 MG Orally Activ e One Daily For Women Orally Active Problems Problem Type SNOMED Code ICD Code Onset Dates Problem Status W/U Status Risk Notes Problem Pre-surgery evaluation (128469743) Other specified pre-operative examination (V72.83) Active confirmed Problem Family History of Cancer of Colon (Situation) (128073556) Family history of colon cancer (V16.0) Active confirmed Problem Screening for malignant neoplasm of colon (261773783) Screening for colorectal cancer (V76.51) Active confirmed Plan Of Treatment Future Test Test Name Order Date COLONOSCOPY 07/22/2014 Next Appt Details Provider Name:Monroe Staley Tristan , 03/27/2025 10:40:00 AM, [address], [address], [place], [address], Insurance Providers Payer Name Payer Address Payer Phone Subscriber Number Group Number Insured Name Patient Relationship to Insured Coverage Start Date Coverage End Date MEDICARE OF [place] [address] [place] [address] [phone] [id number] RYAN STONER Self - patient is the insured [facility] ([facility]) [address] [place] [id number] [phone] [id number] RYAN STONER Self - patient is the insured Medical (General) History Medical History History ICD Code Endometrial cancer 2006 with a OLIVIA Kidney stones Screening colonoscopy in 03/07 009 neg. except for diverticulosis and internal hemorrhoids Denies AK,DM,CVA,Lung disease,renal dise ase Surgical History Surgery Date(Month/Year) OLIVIA Benign breast biopsy
--- OUTSIDE RECORDS SUMMARY | 2025-02-13 07:23 | XMS_ITS | Data Portability ---
Author Organization [facility], [address] Address [address] [place] [address] Assessment No assessment recorded. Plan of Treatment Reminders Order Date Submit Date Provider Last Modified By Organization Details Last Modified Time Details Appointments None recorded. Lab urinalysis , dipstick 2022 023 [email or web address] 247 _[facility], [address] [place] [address], [address], 09:54:36 culture, urine 2022 023 POTTER [facility], [address] [place] [address], [place], [address], 14:06:45 Referral None recorded. Procedures None recorded. Surgeries None recorded. Imaging None recorded. Medication Orders Macrobid 100 mg capsule 2022 023 [facility]/Pharmacy #[id number], [address] [facility], [place], [address], 09:54:38 Patient TargetsNo targets recorded. Patient InstructionsNo instructions recorded. Reason for Referral None Reported. Results Created Date Observation Date Name Description Value Unit Range Abnormal Flag Note LastModifiedBy Organization Detail LastModifiedTime 01/07/2001/10/2023 URINE CULTU AYSE DE urine culture, routine FINAL REPORT abnormal Not Available [facility] ([facility]) [address] [facility], [place], [address], 01/10/2023 12:06:54 01/07/2001/10/2023 URINE CULTU RE, ROUTI [...] ng units per mL Not Available [facility] ([facility]) [address] [facility], [place], [address], 01/10/2023 12:06:54 01/07/20 23 01/10/2023 URINE CULTU [...] thopr im/Cote lfa S Not Available [facility] ([facility]) [address] [facility], [place], [address], 01/10/2023 12:06:54 01/07/20 23 01/06/2023 urina lysis , dipst ick Unknown Analyte Normal = light yellow Not Available [address] [place] [address], [place], [address], 01/06/2023 09:02:45 01/07/20 23 01/06/2023 urina lysis , dipst ick Unknown Analyte Yellow Not Available alejandro [address], [place], [address], 01/06/2023 09:02:45 01/07/2001/06/2023 urina lysis , dipst ick Unknown Analyte Normal = clear Not Available ian anthony [address], [place], [place], [address], 01/06/2023 09:02:45 01/07/2001/06/2023 urina lysis , dipst ick Unknown Analyte Cloudy Not Available alejandro [address], [place], [place], [address], 01/06/2023 09:02:45 01/07/2001/06/2023 urina lysis , dipst ick Unknown Analyte Normal = negati ve Not Available ian anthony [address], [place], [address], 01/06/2023 09:02:45 01/07/2001/06/2023 urina lysis , dipst ick Unknown Analyte Negati ve Not Available ian anthony [address], [place], [place], [address], 01/06/2023 09:02:45 01/07/2001/06/2023 urina lysis , dipst ick Unknown Analyte Normal = Negati ve Not Available ian anthony [address], [place], [address], 01/06/2023 09:02:45 01/07/2001/06/2023 urina lysis , dipst ick Unknown Analyte Negati ve Not Available ian anthony [address], [place], [address], 01/06/2023 09:02:45 01/07/20 23 01/06/2023 urina lysis , dipst ick Unknown Analyte Normal = Negati ve Not Available 2099ian anthony [address], [place], [address], 01/06/2023 09:02:45 01/07/20 23 01/06/2023 urina lysis , dipst ick Unknown Analyte Negati ve Not Available 2099ian anthony [address], [place], [address], 01/06/2023 09:02:45 01/07/2001/06/2023 urina lysis , dipst ick Unknown Analyte Normal = 1.010, 1.015, 1.020 Not Available [facility] [address], [place], [address], 01/06/2023 09:02:45 01/07/20 23 01/06/2023 urina lysis , dipst ick Unknown Analyte 1.020 Not Available [address] [place] [address], [place], [address], 01/06/2023 09:02:45 01/07/20 23 01/06/2023 urina lysis , dipst ick Unknown Analyte Normal = Negati ve Not Available [facility] [address], [place], [address], 01/06/2023 09:02:45 01/07/20 23 01/06/2023 urina lysis , dipst ick Unknown Analyte Modera te Not Available 2099ian anthony [address], [place], [address], 01/06/2023 09:02:45 01/07/20 23 01/06/2023 urina lysis , dipst ick Unknown Analyte Normal = 6.5, 7.0, 7.5, 8.0 Not Available ian anthony [address], [place], [address], 01/06/2023 09:02:45 01/07/2001/06/2023 urina lysis , dipst ick Unknown Analyte 6.5 Not Available [facility] [address], [place], [address], 01/06/2023 09:02:45 01/07/2001/06/2023 urina lysis , dipst ick Unknown Analyte Normal = Negati ve Not Available ian anthony [address], [place], [address], 01/06/2023 09:02:45 01/07/2001/06/2023 urina lysis , dipst ick Unknown Analyte 100 mg/dL Not Available [facility] [address], [place], [address], 01/06/2023 09:02:45 01/07/2001/06/2023 urina lysis , dipst ick Unknown Analyte Normal = 0.2, 1.0 Not Available ian anthony [address], [place], [address], 01/06/2023 09:02:45 01/07/2001/06/2023 urina lysis , dipst ick Unknown Analyte 0.2 E.U./d L Not Available [facility] [address], [place], [address], 01/06/2023 09:02:45 01/07/20 23 01/06/2023 urina lysis , dipst ick Unknown Analyte Normal = Negati ve Not Available [facility] [address], [place], [address], 01/06/2023 09:02:45 01/07/20 23 01/06/2023 urina lysis , dipst ick Unknown Analyte Positi ve Not Available _ian anthony [address] [place], [address], 01/06/2023 09:02:45 01/07/20 23 01/06/2023 urina lysis , dipst ick Unknown Analyte Normal = Negati ve Not Available 20[address] anthony [address] [place], [address], 01/06/2023 09:02:45 01/07/2001/06/2023 urina lysis , dipst ick Unknown Analyte Large Not Available _ alejandro [address] [place], [address], 01/06/2023 09:02:45 Result Notes None recorded. Problems No Known Problems Procedures Surgical History Date Name Laterality Status Provider Name and Address Organization Details Recorded Time tonsillectomy completed Park Gueavra - [facility] 01/06/2023 09:05:29 hysterectomy completed [...] t Available Vitals Date Recorded Body height Body mass index (BMI) Body weight Pain severity - 0-10 verbal numeric rating [Score] - Reported Oxygen saturation Oxygen saturation in Arterial blood by Pulse oximetry Heart rate Respiratory rate Body temperature Systolic blood pressure Diastolic blood pressure Provider Name and Address Organization Details Last Updated DateTime 172.72 cm 24.3 kg/m2 58008.7 8 g 5 97 % 97 % 85 /min 18 /min 98 [degF] 150 mm[Hg] 80 mm[Hg] Park Ayersmaryan Hill [facility] 09:07:49 Social History Question Answer Notes LastModified by Organizat ion Details LastModified Time Tobacco Smoking Status Never Smoker Park CAIT [place] [facility] 01/06/2023 09:04:56 What Is Your [...] SNOMED-CT Code Diagnosis ICD10 Code Diagnosis Note [id number] [address] [place] [address] 03/11/2018 08:08:37 03/11/2018 08:50:12 [id number] [address] [place] [address] 12/09/2018 08:30:44 12/09/2018 09:07:42 [id number] [address] [place] [address] 03/12/2018 08:06:33 03/12/2018 09:00:14 [id number] GREGORY GANNON MD [address] [place] [address] 01/06/2023 08:12:19 01/06/2023 09:57:29 Acute urinary tract infection 614732167 N39.0 Health Concerns Section Related Observation LastModified by Organization Detai ls LastModified Time None Recorded Concern Status LastModified by Organization Details LastModified Time None Recorded Advance Directives Directive None Recorded Payers Encounter Date Sequence Insurance Name Policy Number Policy Kendrick Covered Member ID Kendrick Member ID Guarantor Name 03/11/2018 1 [place] [facility] Concha Haysier [id number] Concha Sarmiento 03/12/2018 1 [place] [facility] Concha Haysier [id number] Concha Sarmiento 12/09/2018 1 [place] [facility] Concha Haysier [id number] Concha Sarmiento 01/06/2023 1 [place] [facility] Concha Haysier [id number] Concha Sarmiento 01/06/2023 2 [facility] [employer] [facility] [id number] Concha Sarmiento [id number] Concha Sarmiento Notes Date Note Type Note [...] GREGORY GANNON MD [address] [place], [address], [place] - [facility] 01/06/2023 09:57:36 OBGyn Episode No OBEpisode recorded.
== END 2025-02-13 07:22 | disposition home or self-care (01) ==
LOC: HO.MAMMO 07:21
PROVIDERS: PCP Internal Medicine; Visit Provider Internal Medicine
DX: Z12.31 Encounter for screening mammogram for malignant neoplasm of breast (principal)
CPT/HCPCS: 77063; 77067

== ENCOUNTER → 2025-02-13 07:30 | Outpatient (BNV) | payer MEDICARE, OTHER, SELFPAY | PROVIDERS: PCP Internal Medicine; Visit Provider Internal Medicine | DX: Z12.31 Encounter for screening mammogram for malignant neoplasm of breast (principal) | CPT/HCPCS: 77063; 77067 ==

== ENCOUNTER 2025-06-09 00:47 | Emergency (ER) | payer MEDICARE, OTHER, SELFPAY ==
--- NOTE | ~2025-06-09 | CT_ITS ---
CLINICAL HISTORY: trauma CT head without contrast Comparison: None provided Findings: There is no acute intracranial hemorrhage. Ventricles are within normal limits in size. No mass effect or midline shift is present. The case-white matter differentiation appears normal. There is generalized cerebral atrophy. The visualized portions of the orbits, paranasal sinuses, and mastoids are unremarkable. No fractures are identified. There is a small right posterior superior scalp laceration. IMPRESSION: No acute intracranial abnormality. This document has been electronically signed by: Luca Reyes MD on 06/09/2025 03:52:19
--- NOTE | ~2025-06-09 | CT_ITS ---
CLINICAL HISTORY: trauma CT cervical spine without contrast Comparison: None provided Findings: There is minimal degenerative anterolisthesis of C2 on C3 and C3 on C4 due to facet osteoarthritis. There is no fracture. There is moderate C5-6 and C6-7 degenerative disc disease. There are neuroforaminal stenoses at C5-6 and C6-7 due to uncovertebral joint osteoarthritis. There is carotid artery calcification. IMPRESSION: No evidence of cervical spine injury. This document has been electronically signed by: Luca Reyes MD on 06/09/2025 03:46:06
[2025-06-09 00:49] VITALS: BP 190/92; PULSE 107; RESP 20; TEMP 36.4; O2SAT 98; BMI 22.8
--- OUTSIDE RECORDS SUMMARY | 2025-06-09 01:09 | XMS_ITS | Clinical Summary ---
Author Organization [facility] Address [address] [place] [address] Phone Care Team Providers Care Real Estate Utilization Officer Name Role Phone Sarah Funes MD Primary Care Provider [phone] Allergies No known active allergies Medications folic acid/multivit-mi n/lutein (CENTRUM SILVER ORAL) Active calcium carbonate-vitami n D3 1,500 mg (600 mg elemental)-200 units Tab 1 tablet with food Active Social History Tobacco Use Types Packs/Day Years Used Date Smoking Tobacco: Never Smokeless Tobacco: Never Alcohol Use Standard Drinks/Week Comments Not Currently 0 (1 standard drink = 0.6 oz pur e alcohol) Education Answer Date Recorded Are you interested in more education? Not on michael e 03/03/2023 Are you concerned about learning? Not on file 03/03/2023 No 03/03/2023 No 03/03/2023 Digital Access Answer Date Recorded No 04/01/2023 No 04/01/2023 Reliable internet access at home? Not on file 04/01/2023 Device with a working camera? Not on file Comments Unknown Sex and Gender Information Value Date Recorded Sex Assigned at Not on file Legal Sex Female 10:08 PM EDT Gender Identity Not on file Sexual Orientation Not on file Last Filed Vital Signs Vital Sign Reading Time Taken Comments Blood Pressure - - Pulse 89 08/21/2015 8:10 AM EDT Temperature - - Respiratory Rate - - Oxygen Saturation - - Inhaled Oxygen Concentration - - Weight 74.2 kg (163 lb 9.6 oz) 03/16/2022 1:00 P M EDT Height 164 cm (5' 4.57 ) 03/16/2022 1:00 PM EDT Body Mass Index 27.59 03/16/2022 1:00 PM EDT Plan of Treatment Health Maintenance Due Date Last Done Comments LIPID PANEL 1946 DEPRESSION SCREENING 1958 HEPATITIS C SCREENING 1964 ZOSTER VACCINES (1 of 2) 1996 OSTEOPOROSIS SCREENING INITI AL (ONE-TIME) 2011 RSV VACCINE (1 - 1-dose 75+ series) 2021 COVID-19 VACCINE (4 - 2023-2 5 season) 2024 08/27/2021, 01/31/2021, 01/03/2021 Adult Td,Tdap Booster 12/20/2027 12/20/2017 , 09/22/2015 PNEUMOCOCCAL VACCINES (50+ years) Completed 09/02/2019, 10/02/2016 SMOKING STATUS SCREENING (On ce After 26 Yrs) Completed 03/16/2022 HEPATITIS A VACCINES Aged Out No long er eligible based on patient's age to complete this topic HIB VACCINES Aged Out No longer eligi ble based on patient's age to complete this topic MENINGOCOCCAL VACCINES (ACWY) Aged Out No longer eligible based on patient's age to complete this topic MENINGOCOCCAL VACCINES (B) Aged Out N o longer eligible based on patient's age to complete this topic Medical Devices Not on file Insurance MEDICARE PART A & B [facility] EXTENSION MEDICARE SUPPLEMENT MEDICARE PART A & B [facility] MEDICARE SUPPLEMENT MEDICARE PART A & B [employer] MEDICARE SUPPLEMENT MEDICARE PART A & B Member Subscriber Plan / Payer ( fective 2011-Present) Name:Concha Sarmiento Member ID:[id number] Relation to Subscriber:Self Name:Concha Sarmiento Subscriber ID:[id number] Payer ID:[id number] Group ID:Not on file Type:Medicare Address: [employer] [address] [facility] EXTENSION MEDICARE SUPPLEMENT MEDICARE PART A & B Member Subscriber Plan / Payer (Ef fective 2011-Present) Name:Concha Sarmiento Member ID:[id number] Relation to Subscriber:Self Name:Concha Sarmiento Subscriber ID:[id number] Payer ID:[id number] Group ID:Not on file Type:Medicare Address: [employer] [address] [place] [id number] [place] [address] EXTENSION MEDICARE SUPPLEMENT MEDICARE PART A & B [facility] EXTENSION MEDICARE SUPPLEMENT MEDICARE PART A & B [employer] MEDICARE SUPPLEMENT MEDICARE PART A & B [employer] MEDICARE SUPPLEMENT MEDICARE PART A & B [facility] EXTENSION MEDICARE SUPPLEMENT Care Teams Real Estate Utilization Officer Relationship Specialty Start Date End Date Sarah Funes MD [address] [facility] [place] [address] PCP - General Internal Medicine 02/16/22 Additional Source Comments The information contained in this document represents components of the legal health record. It is not the complete legal health record.[facility]
--- OUTSIDE RECORDS SUMMARY | 2025-06-09 01:09 | XMS_ITS | Patient Health Record ---
Author Organization [facility] Adriana Ng Address [address] [place] [address] Care Team Providers Care Calender Worker Helper Name Role Phone Mitzi Laird DO Primary Care Provider Curtis Bradley Unavailable [phone] Reason For Referral No Information Medications Medication SIG (Take, Route, Frequency, Duration) Notes Start Date End Date Status Night Splint AFO - L1930 as directed 07/23/2018 Active Multivitamin Active Calcium Active Social History Tobacco Use: Social History Observation Description Date Details (start date - stop date) Never Smoker NA - NA Tobacco Use/Smoking Question Answer Notes Are you a: nonsmoker Additional Findings: Tobacco Non-User Aggressive non-smoker Alcohol Screen Question Answer Notes Did you have a drink containing alcohol in the p ast year? No Points 0 Interpretation Negative Tobacco use other than smoking: Question Answer Notes Are you an other tobacco user? No Problems Problem Type SNOMED Code ICD Code Onset Dates Problem Status W/U Status Risk Notes Problem Other hammer toe(s) (acquired), right foot (M20.41) Active confirmed Plan Of Treatment Pending Test Test Name Order Date X ray : Foot, right 2V 07/23/2018 17371- Nail Unit Biopsy 08/23/2018 Insurance Providers Payer Name Payer Address Payer Phone Subscriber Number Group Number Insured Name Patient Relationship to Insured Coverage Start Date Coverage End Date Medicare National [facility] [address] [facility] [address] [id number] Concha Sarmiento Self - patient is the insured 1 [employer]) [address] [place] [address] [id number] Concha Sarmiento Self - patient is the insured Medical (General) History Medical History History ICD Code Cancer Sciatica Measles Mumps Chicken pox Surgical History Surgery Date(Month/Year) hysterectomy 2006 kidney stones 1976 tonsillectomy 1947
[2025-06-09 01:18] VITALS: BP 175/96; PULSE 93; RESP 20; TEMP 36.1; O2SAT 98
--- NOTE | 2025-06-09 02:56 | ED.GENADULT ---
HPI - General Adult General Chief complaint: Wound/Laceration Stated complaint: fall w/ head strike Time Seen by Provider: 06/09/25 01:29 Source: patient Limitations: no limitations History of Present Illness ED Provider: Inna Grullon PA-C HPI narrative: 80-year-old female with a history of vitamin-D deficiency, osteopenia, hyperlipidemia who presents after fall at home. Patient states she slipped and fell, falling backwards striking a piece of furniture. She did sustain a laceration to posterior scalp. She is not on a blood thinner. There was no loss of consciousness, denies headache, dizziness, nausea vomiting. Related Data Home Medications ?Medication ?Instructions ?Recorded ?Confirmed multivitamin 1 tab PO DAILY 10/08/20 06/24/24 calcium carb-ergocalciferol (vit tab PO 08/13/22 06/24/24 D2) 600 mg calcium-200 unit tablet Allergies Allergy/AdvReac Type Severity Reaction Status Date / Time No Known Allergies Allergy Verified 06/09/25 00:53 Review of Systems Review of Systems: Yes all other systems are reviewed and are negative Constitutional: Constitutional: Denies fatigue, Denies fever(s) and Denies headache(s) ENT: Denies dizziness, Denies headache(s) and Denies neck pain Cardiovascular: Cardiovascular: Denies chest pain and Denies dyspnea Respiratory: Respiratory: Denies dyspnea Gastrointestinal: Gastrointestinal: Denies abdominal pain, Denies nausea and Denies vomiting Musculoskeletal: Musculoskeletal: Denies back pain and Denies neck pain Neurologic: Denies dizziness and Denies headache(s) Endocrine: Endocrine: Denies fatigue PMFSH Past Medical History Attestation statement: The following information was validated with the patient. Medical History (Updated 06/09/25 @ 03:54 by CAIT Kohler) Hyperlipidemia Mammogram normal Chondrodermatitis nodularis helicis Osteopenia Bacteriuria, asymptomatic Surgical History Hx of right cataract extraction History of total abdominal hysterectomy and bilateral salpingo-oophorectomy History of colonoscopy Family History Family History Father HTN (hypertension) Colon cancer Mother CVD (cardiovascular disease) Osteoporosis Brother No problems noted. Brother No problems noted. Social History 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, walks daily for 4 miles, retired teacher Housing: Condominium Alcohol intake: never Patient Tobacco Use Status: Never used Tobacco Smoked in Last 30 Days: No e-Cigarette/Vaping Use: Never Used Use of substances other than those prescribed or required for medical reasons: No Advance Directives: No Advance Directives Information Provided: No service: No Current occupational status: retired Cognitive needs: No Hearing needs: No Vision needs: Yes Physical Exam ED Vital Signs: Vital Signs - 24 hr 06/09/25 00:49 06/09/25 01:18 Temperature 97.6 F 97.0 F Pulse Rate 107 H 93 Respiratory Rate 20 20 Blood Pressure 190/92 H 175/96 H Pulse Oximetry 98 98 Oxygen Delivery Method Room Air Room Air BMI result Body Mass Index 22.8 Const Other: Alert well-appearing, approximately 6 cm linear laceration deep to subcu structures, no longer bleeding Orientation/consciousness: patient oriented x3 Resp Effort & Inspection: normal respiratory effort Cardio Other: Normal peripheral perfusion Skin Other: Warm dry no rash Neuro General: patient oriented x3, gait normal, no focal motor deficits and CN's II-XI intact bilaterally Psych Other: Cooperative Medications Administered Discontinued Medications Generic Name Dose Route Start Last Admin Trade Name Andrew PRN Reason Stop Dose Admin Diphtheria/Tetanus/Acell Pertussis 0.5 ml 06/09/25 01:29 06/09/25 03:23 Diphth,Pertus(Acell),Tet Adult 0.5 Ml Syringe IM 06/09/25 01:30 0.5 ml .ONCE ONE Administration Procedures Laceration Laceration 1: Site: scalp Size (cm): 6 Description: linear Depth: simple, single layer Local Anesthetic: lidocaine 1% and with epi Amount of anesthesia used (mL): 10 Pre-repair: irrigated extensively Skin layer closed with: other (jluis, 13) Medical Decision Making Medical Decision Making MDM Narrative: 80-year-old female with a history of vitamin-D deficiency, osteopenia, hyperlipidemia who presents after fall at home. Patient states she slipped and fell, falling backwards striking a piece of furniture. She did sustain a laceration to posterior scalp. She is not on a blood thinner. There was no loss of consciousness, denies headache, dizziness, nausea vomiting. No chronic issues History: Per patient I have considered the following differential diagnoses: Intracranial hemorrhage, cervical spine injury, laceration, contusion Plan: The laceration will require simple repair, given her age I am scanning her head and neck. I have low suspicion for cervical spine injury, she has no complain of neck pain, I have low suspicion for intracranial hemorrhage, she is neurologically intact, without a headache, not actively vomiting. She is also not on a blood thinner. We will be updating her tetanus. I have independently reviewed the following tests: CT cervical spine:IMPRESSION: No evidence of cervical spine injury. CT brain:Findings: There is no acute intracranial hemorrhage. Ventricles are within normal limits in size. No mass effect or midline shift is present. The case-white matter differentiation appears normal. There is generalized cerebral atrophy. The visualized portions of the orbits, paranasal sinuses, and mastoids are unremarkable. No fractures are identified. There is a small right posterior superior scalp laceration. IMPRESSION: No acute intracranial abnormality. Discharge Plan Discharge Clinical Impression: Laceration of scalp Patient Disposition: Home, Self-Care Instructions: Laceration (ED) Additional Instructions: Imaging of your brain and cervical spine were normal, you did not sustain an acute injury beyond the laceration. Thirteen jlius were used to repair the laceration, they can be removed in 7-10 days. You can follow up with primary care, or you can return to the emergency department to have them removed. Your tetanus vaccine was updated it is valid for 10 years. Prescriptions: No Action multivitamin Tablet 1 tab PO DAILY calcium carbonate-vitamin D2 600 mg calcium- 200 unit tablet PO Print Language: Nigerian
[2025-06-09] MEDS: Diphth,Pertus(ACell),Tet Adult 0.5 ML SYRINGE IM (03:23)
[2025-06-09 04:28] VITALS: BP 172/94; PULSE 90; RESP 16; TEMP 36.4; O2SAT 99
[2025-06-09 04:31] VITALS: BP 172/94; PULSE 90; RESP 16; TEMP 36.4; O2SAT 99
== END 2025-06-09 04:32 | disposition home or self-care (01) ==
PROVIDERS: Emergency Provider Emergency Medicine
DX: S01.01XA Laceration without foreign body of scalp, initial encounter (principal); W01.0XXA Fall on same level from slipping, tripping and stumbling without subsequent striking against object, initial encounter; Y93.9 Activity, unspecified; Y92.9 Unspecified place or not applicable; Y99.9 Unspecified external cause status; E78.5 Hyperlipidemia, unspecified
CPT/HCPCS: 12002; 70450; 72125; 90471; 90715; 99284

== ENCOUNTER → 2025-06-09 01:28 | Outpatient (BNV) | payer MEDICARE, OTHER, SELFPAY | PROVIDERS: Emergency Provider Emergency Medicine; Visit Provider Radiology Diagnostic Radiology | DX: M48.02 Spinal stenosis, cervical region (principal); S01.01XA Laceration without foreign body of scalp, initial encounter | CPT/HCPCS: 70450; 72125 ==

== ENCOUNTER 2025-06-16 08:05 | Outpatient (AMB) | payer MEDICARE, OTHER, SELFPAY ==
[2025-06-16 08:36] VITALS: BP 132/84; PULSE 52; TEMP 36.6; O2SAT 97; BMI 24.6
--- NOTE | 2025-06-16 08:36 | AM.OFFWIN_ITS ---
Intake Vital Signs 06/16/25 08:36 Height 5 ft 8 in Weight 162 lb 2 oz BMI 24.6 BP 132/84 Blood Pressure Location Lt brachial Position Sitting Pulse 52 Pulse Source Pulse Oximeter Temp 97.9 F Temp Source Oral Pulse Oximetry (%) 97 Oxygen Delivery Method Room Air Intake Visit Reasons: EP [place] removed Patient Tobacco Use Status: Never used Tobacco Accounts Receivable Executive Required: No Is last menstrual period known: No Post menopausal: Yes Patient : No Allergies No Known Allergies Allergy (Verified 06/16/25 08:41) Do you need a note to return to daycare/school/sports/work: No HPI HPI Comments History of Present Illness Details History of Present Illness - The patient is a 80-year-old female pr esenting with a fall resulting in a head injury. - The fall occurred early Monday morning around midnight while the patient was returning from the bathroom. - She was wearing flip-flop slippers at the time of the incident. - Post-fall, she drove herself to the [facility], managing the bleeding with a towel. - Hospital evaluation included a scan, w hich was normal, and she reported no pain. - She denies fever, chills, redness, war mth, bleeding, or pain. Physical Exam General: Cooperative, healthy appearing, comfortable, no acute distress and well developed Orientation: Patient oriented x3 Limitations: No limitations Head: Normal to inspection Respiratory: Normal respiratory effort and able to speak in complete sentences. Clear to auscultation bilaterally Cardiovascular: Regular rate and rhythm. Normal S1 and S2. No m/r/g noted. Skin: No rashes or lesions noted. Linear laceration noted in the right parietal region of the head. #13 jluis were noted. No bleeding, swelling, redness or discharge. Neuro: Patient oriented x3 Procedure - Wound cleaned with normal saline. #13 jluis removed. No bleeding noted. Patient was informed and verbally consented to the use of an ambient scribe for clinic note documentation during this visit. [facility] Medical History (Updated 06/10/25 @ 00:01 by Viviana Garcia) Hyperlipidemia Mammogram normal Chondrodermatitis nodularis helicis Osteopenia Bacteriuria, asymptomatic Surgical History Hx of right cataract extraction History of total abdominal hysterectomy and bilateral salpingo-oophorectomy History of colonoscopy Family History Father HTN (hypertension) Colon cancer Mother CVD (cardiovascular disease) Osteoporosis Brother No problems noted. Brother No problems noted. 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, walks daily for 4 miles, retired teacher Housing: Condominium Alcohol intake: never Patient Tobacco Use Status: Never used Tobacco e-Cigarette/Vaping Use: Never Used Patient : No service: No Current occupational status: retired Cognitive needs: No Hearing needs: No Vision needs: Yes Review of Systems Const All systems reviewed & are unremarkable except as noted in HPI and below Physical Exam Vital Signs: Last Vital Signs Temp 97.9 F 06/16/25 08:36 Pulse 52 06/16/25 08:36 BP 132/84 06/16/25 08:36 Pulse Ox 97 06/16/25 08:36 Oxygen Delivery Method Room Air 06/16/25 08:36 BMI result Body Mass Index 24.6 Assessment & Plan Assessment & Plan (1) Encounter for staple removal: Code(s): Z48.02 - Encounter for removal of sutures Plan Most likely staple removal Plan - keep wound clean and dry - tylenol as needed - follow up with PCP Coding Level of Care Code Est Pt Level 3 (91289) Diagnoses Encounter for staple removal Z48.02
== END 2025-06-16 09:23 | disposition home or self-care (01) ==
PROVIDERS: PCP Internal Medicine; Visit Provider Physician Assistant Medical
DX: Z48.02 Encounter for removal of sutures (principal)

== ENCOUNTER → 2025-06-16 08:05 | Outpatient (BNVA) | payer MEDICARE, OTHER, SELFPAY | PROVIDERS: PCP Internal Medicine; Visit Provider Physician Assistant Medical | DX: Z48.02 Encounter for removal of sutures (principal) | CPT/HCPCS: 99212 ==

== ENCOUNTER 2025-06-30 09:34 | Outpatient (REF) | payer MEDICARE, OTHER, SELFPAY ==
[2025-06-30 13:34] LABS: MANUAL DIFF FLAG NO
[2025-06-30 13:42] LABS: Hematocrit 43.4 % (37.0-47.0); Hemoglobin 14.0 g/dl (12.0-16.0); Imm Gran Abs Auto 0.02 X10*3/uL (0.00-0.03); Imm Gran Pct Auto 0.3 % (0.0-0.4); Lymphocytes Absolute Auto 1.1 X10*3/uL (1.2-4.9); Mean Corpuscular HGB Conc 32.3 g/dl (31.0-35.0); Mean Corpuscular Hemoglobin 30.2 pg (27.0-33.0); Mean Corpuscular Volume 93.7 fL (80.0-98.0); NRBC Abs Auto 0.000 X10*3/uL (0.0-0.012); NRBC Pct Auto 0.0 /100WBC (0.0-0.2); Platelet Count 190 X10*3/uL (160-400); Red Blood Count 4.63 X10*6/uL (4.20-5.50); White Blood Count 5.8 X10*3/uL (4.8-10.8)
[2025-06-30 14:10] LABS: Alanine Aminotransferase 13 U/L (0-31); Albumin Level 4.2 g/dL (3.5-5.0); Alkaline Phosphatase 87 U/L (39-117); Anion Gap 12 (12-20); Aspartate Amino Transferase 28 U/L (5-31); Blood Urea Nitrogen 13 mg/dL (9-16); Calcium 9.1 mg/dL (8.4-10.2); Carbon Dioxide 24 mmol/L (22-29); Chloride 108 mmol/L (96-108); Cholesterol 223 mg/dL (<200); Estimated Glomerular Filt Rate > 60; HDL Cholesterol 77 mg/dL (>40); Potassium 3.8 mmol/L (3.3-5.1); Sodium 140 mmol/L (135-145); Total Protein 6.5 g/dL (6.5-8.0); Triglycerides 79 mg/dL (<150)
== END 2025-06-30 09:35 | disposition home or self-care (01) ==
LOC: HO.HMGCLDS 09:34
PROVIDERS: PCP Internal Medicine; Visit Provider Internal Medicine
DX: Z00.00 Encounter for general adult medical examination without abnormal findings (principal); M85.80 Other specified disorders of bone density and structure, unspecified site; E55.9 Vitamin D deficiency, unspecified; E78.5 Hyperlipidemia, unspecified; N30.00 Acute cystitis without hematuria
CPT/HCPCS: 36415; 80053; 80061; 82306; 85025; 96127

== ENCOUNTER 2025-06-30 09:34 | Outpatient (AMB) | payer MEDICARE, OTHER, SELFPAY ==
--- NOTE | 2025-06-30 09:40 | A.OFFVIS_ITS ---
Intake Vital Signs 06/30/25 09:41 Height 5 ft 8 in Weight 161 lb BMI 24.5 BP 130/80 Blood Pressure Location Lt brachial Position Sitting Pulse 80 Pulse Source Pulse Oximeter Pulse Oximetry (%) 97 Oxygen Delivery Method Room Air Intake Visit Reasons: [facility] [place] [id number] Support Coordinator Required: No Allergies No Known Allergies Allergy (Verified 06/30/25 09:41) Medication List - Last Reconciled 06/30/25 by Sarah Funes MD calcium carbonate-vitamin D2 600 mg calcium- 200 unit tabs PO multivitamin 1 tab PO DAILY Do you need a note to return to daycare/school/sports/work: No HPI [facility] [place] G0439 HPI Details Initiated the conversation about Advanced Directives. Advanced Directives help? patients prepare for current and future decisions about their medical treatment? and place of care. Discussed with patient that it is a process where a patients? current condition and prognosis are reviewed, their wishes for information? regarding their illness are elicited, and likely medical dilemmas are presented? and options discussed. The form can be amended as needed, reviewed yearly and? make changes as needed IPPE/AWV ? year old presents? for her ? Annual? Wellness Visit, initial visit.? Medical / Social History Reviewed? Past Medical History ?Yes? . ? [place]? of Care / Care Team list updated ?Yes . ? Surgical/Hospitalization? History ?Yes . ? Current Medications? (including OTC and supplements) ?Yes . ? Family History ?Yes? . ? Tobacco? Control form ?Yes . ? AUDIT-C (Alcohol use) form? ?Yes . ? Illicit drug use in Social? History ?Yes . ? Current diagnosis of? depression? ?No ? Appropriate PHQ2/PHQ9? completed ?Yes . ? Data entered by ?Medical? Railroad Car Checker and reviewed by provider ? Fall Risk ? Fall? History? Have you had any falls with? injury in the past year? ?No . ? Have you had two or more? falls in the past year? ?No . ? Fall Risk Assessment: ?No? falls in the past year . ? HRA filled out by? the patient, reviewed by Provider and scanned. ? IPPE/AWV ? Balance? [place]berg? ?Yes . ? Tandem? walk ?Yes . ? Walk and? Turn ?Yes . ? Rise from? sit to stand ?Yes . ?Vision? Corrective? lens ?Yes ? Vision? screen ? Up-to-date, has an appointment [] for vision? screening and glaucoma screening ?Hearing? Whisper? test ?pass .? Initiated the conversation about Advanced Directives. Advanced Directives help? patients prepare for current and future decisions about their medical treatment? and place of care. Discussed with patient that it is a process where a patients? current condition and prognosis are reviewed, their wishes for information? regarding their illness are elicited, and likely medical dilemmas are presented? and options discussed. The form can be amended as needed, reviewed yearly and? make changes as needed Written? Plan?Completed. See Patient? Documents. [facility] Medical History (Updated 06/30/25 @ 13:10 by Inna Akins RN) Hyperlipidemia Chondrodermatitis nodularis helicis Osteopenia Surgical History (Updated 06/30/25 @ 13:10 by Inna Akins RN) Hx of bilateral cataract extraction History of total abdominal hysterectomy and bilateral salpingo-oophorectomy History of colonoscopy Family History Father HTN (hypertension) Colon cancer Mother CVD (cardiovascular disease) Osteoporosis Brother No problems noted. Brother No problems noted. Social History Household Members Other:: lives alone, walks daily for 4 miles, retired teacher Housing: Condominium Alcohol intake: never Patient Tobacco Use Status: Never used Tobacco e-Cigarette/Vaping Use: Never Used service: No Current occupational status: retired Cognitive needs: No Hearing needs: No Vision needs: Yes Questionnaire Medicare Wellness Checkup [age] What gender do you identify with?: female During the past 4 weeks, how much have you been bothered by emotional problems such as feeling anxious, depressed, irritable, sad or downhearted, and blue?: not at all During the past 4 weeks, has your physical & emotional health limited your social activities with family, friends, neighbors, or groups?: not at all During the past 4 weeks, how much bodily pain have you generally had?: very mild pain During the past 4 weeks, was someone available to help you if you needed & wanted help?: yes, as much as I wanted During the past 4 weeks, what was the hardest physical activity you could do for at least 2 minutes?: very heavy Can you get to places out of walking distance without help? (For eg., can you travel alone on buses, taxis or drive your car?): Yes Can you go shopping for groceries or clothes without someone's help?: Yes Can you prepare your own meals?: Yes Can you do your housework without help?: Yes Because of any health problems, do you need the help of another person with your personal care needs such as eating, bathing, dressing or getting around the house?: No Can you handle your own money without help?: Yes During the past 4 weeks, how would you rate your health in general?: very good During the past 4 weeks how have things been going for you?: very well; could hardly better Are you having difficulties driving your car?: no Do you always fasten your seat belt when you are in a car?: yes, usually During past 4 weeks, have you been bothered by the following: never: Falling or dizzy when standing up, Sexual problems?, Trouble eating well?, Teeth or denture problems?, Problems using the telephone? and Tiredness or fatigue? Have you fallen 2 or more times in the past year?: No Are you afraid of falling?: No Are you a smoker?: no During the past 4 weeks, how many drinks of wine, beer, or other alcoholic beverages did you have?: no alcohol at all Do you exercise for about 20 minutes 3 or more times a week?: yes, all the time Have you been given information to help with the following?: no: Hazards in your house that might hurt you? and no: Keeping track of your medications? How often do you have trouble taking medicines the way you have been told to take them?: I do not have to take medicine How confident are you that you can control & manage most of your health problems?: very confident What is your race?: White Mini Mental State Exam (MMSE) Orientation What is the (year) (season) (date) (day) (month)?: year, season, date, day and month Where are we (state) (county) (town or city) (hospital) (floor)?: state, county, town or city, hospital/clinic and floor Registration Name of 3 unrelated objects clearly and slowly, then ask patient to repeat all 3 of them. (1st repeat determines score. Make sure they can repeat all three): object 1, object 2 and object 3 Attention & Calculation (CHOOSE ONE) Spell WORLD backwards (DLROW): 5 letters Recall Ask patient to repeat the 3 items from question #3.: object 1, object 2 and object 3 Language Show patient a wristwatch & ask what it is. Repeat for pencil.: watch and pencil Ask the patient to repeat the phrase 'No ifs, ands, or buts' after you.: correct Ask the patient to 'take a piece of paper with their right hand' 'fold paper in half' 'place paper on floor': take paper in right hand, fold paper in half and place paper on floor Print the sentence 'CLOSE YOUR EYES' on a piece. If patient actually closes eyes then score.: followed written direction Give patient a blank piece of paper & ask to write a sentence. Score if it contains a noun & verb.: sentence contains subject and verb Score Score: 29 PHQ-9 Over the last 2 weeks, how often have you been bothered by any of the following problems? 1. Little interest or pleasure in doing things: nearly every day 2. Feeling down, depressed, or hopeless: not at all 3. Trouble falling or staying asleep, or sleeping too much: not at all 4. Feeling tired or having little energy: not at all 5. Poor appetite or overeating: not at all 6. Feeling bad about yourself - or that you are a failure or have let yourself or your family down: not at all 7. Trouble concentrating on things, such as reading the newspaper or watching television: not at all 8. Moving or speaking so slowly that other people could have noticed. Or the opposite - being so fidgety or restless that you have been moving around a lot more than usual: not at all 9. Thoughts that you would be better off or of hurting yourself in some way: not at all Total score: 3 Depression Screening Interpretation: Negative Depression Screening Done: Yes 23726 - PHQ-9 Billing: Yes Source: Developed by Drs. Monroe Perez, Alexus Madrigal, Doug Nascimento and colleagues, with an educational shira from [employer]. Review of Systems Const All systems reviewed & are unremarkable except as noted in HPI and below Eyes Reports no additional complaints ENT Reports no additional complaints Card Reports no additional complaints Resp Reports no additional complaints GI Reports no additional complaints Reports no additional complaints Musc Reports no additional complaints Physical Exam Vital Signs: Last Vital Signs Pulse 80 06/30/25 09:41 BP 130/80 06/30/25 09:41 Pulse Ox 97 06/30/25 09:41 Oxygen Delivery Method Room Air 06/30/25 09:41 BMI result Body Mass Index 24.5 Const General: no acute distress HEENT Head: Yes normal to inspection Ears: hearing grossly normal bilaterally Eyes General: appearance normal, both eyes and all related structures Neck Neck: Yes no lymphadenopathy and Yes supple Resp Effort & Inspection: normal respiratory effort Auscultation: clear to auscultation bilaterally Cardio Rhythm: regular rhythm Heart sounds: S1 normal heart sound present and S2 normal heart sound present GI Inspection: Yes normal to inspection Palpation (GI): Soft to palpation Percussion: Yes normal to percussion Auscultation: normal bowel sounds Extrem General: Yes no clubbing, cyanosis or edema Assessment & Plan Assessment & Plan (1) Osteopenia: Comment: DEXA 11/2019 T score -1.3 femur Code(s): M85.80 - Other specified disorders of bone density and structure, unspecified site Plan: Continue vitamin-D supplement weight-bearing exercises repeat DEXA in 2 years (2) Hyperlipidemia: Code(s): E78.5 - Hyperlipidemia, unspecified Plan: Continue low-cholesterol diet (3) Vitamin D deficiency: Code(s): E55.9 - Vitamin D deficiency, unspecified Plan: Continue vitamin-D supplement (4) Annual physical exam: Code(s): Z00.00 - Encounter for general adult medical examination without abnormal findings Plan: Well-balanced diet regular physical activity discussed with the patient she is up-to-date with the mammogram and will have a colonoscopy tomorrow Orders: Orders UA CC w/rflx Micro + Cult Today N30.00 - Acute cystitis without hematuria Complete Blood Count Auto Diff 1 Year E55.9 - Vitamin D deficiency, unspecified, E78.5 - Hyperlipidemia, unspecified, M85.80 - Other specified disorders of bone density and structure, unspecified site, Z00.00 - Encounter for general adult medical examination without abnormal findings Vitamin D 25-OH Total 1 Year E55.9 - Vitamin D deficiency, unspecified, E78.5 - Hyperlipidemia, unspecified, M85.80 - Other specified disorders of bone density and structure, unspecified site, Z00.00 - Encounter for general adult medical examination without abnormal findings Comprehensive [place]. Panel Fast 1 Year E55.9 - Vitamin D deficiency, unspecified, E78.5 - Hyperlipidemia, unspecified, M85.80 - Other specified disorders of bone density and structure, unspecified site, Z00.00 - Encounter for general adult medical examination without abnormal findings Lipid Panel 1 Year E55.9 - Vitamin D deficiency, unspecified, E78.5 - Hyperlipidemia, unspecified, M85.80 - Other specified disorders of bone density and structure, unspecified site, Z00.00 - Encounter for general adult medical examination without abnormal findings Quality Reporting (2019) Depression/Bipolar (159/160/161/177) PHQ-9: Total score: 3 Coding Level of Care Code Medicare Subsequent (G0439) Diagnoses Osteopenia M85.80 Hyperlipidemia E78.5 Vitamin D deficiency E55.9 Annual physical exam Z00.00 CPT Codes Advance Care Planning - Time spent: 1-15 minutes, not on file ([id number]) Additional Codes PHQ-9 - 28144 - PHQ-9 Billing: Yes ([id number]) Advance Care Planning Forms completed: Health Care Proxy Time spent: 1-15 minutes, not on file Did not discuss due to Cultural/Spiritual beliefs: Yes
[2025-06-30 09:41] VITALS: BP 130/80; PULSE 80; O2SAT 97; BMI 24.5
--- OUTSIDE RECORDS SUMMARY | 2025-06-30 10:23 | XMS_ITS | Patient Health Record ---
Author Organization [facility] Address [address] [place] [id number] Care Team Providers Care Construction Project Assistant Name Role Phone Sarah Funes MD Primary Care Provider Monroe Ruelas Unavailable [phone] Allergies No Known Allergies Reason For Referral No Information Medications Medication SIG (Take, Route, Fr equency, Duration) Notes Start Date End Date Status One Daily For Women Orally Active Calcium 150 MG Orally Activ e Vitamin D3 Active Problems Problem Type SNOMED Code ICD Code Onset Dates Problem Status W/U Status Risk Notes Problem Pre-surgery evaluation (297782062) Other specified pre-operative examination (V72.83) Active confirmed Problem Family History of Cancer of Colon (Situation) (615363164) Family history of colon cancer (V16.0) Active confirmed Problem Screening for malignant neoplasm of colon (967033960) Screening for colorectal cancer (V76.51) Active confirmed Problem Colon cancer screening (856602953) Colon cancer screening (Z12.11) Active confirmed Problem Preprocedural examination (183858983206709) Preprocedural examination (Z01.818) Active confirmed Problem Family history of malignant neoplasm of gastrointestinal tract (718782955) Family history of colon cancer in father (Z80.0) Active confirmed Vital Signs Blood pressure diastolic 77 mm Hg 03/27/2025 Height 68 in 03/27/2025 Blood pressure systolic 111 mm Hg 03/27/2025 Weight 160 lbs 03/27/2025 BMI 24.33 kg/m2 03/27/2025 Procedures Procedure Date Ordered Date Performed Result Body Sit e COLONOSCOPY 03/27/2025 N/A Encounters Encounter Location Date Provider Diagnosis [facility] [address] [place] [address] 03/27/2025 Monroe Hudson Colon cancer screeni ng Z12.11 ; Preprocedural examination Z01.818 and Family history of colon cancer in father Z80.0 [facility] [address] [place] [address] 03/27/2025 Monroe Husdon Assessments Encounter Date Diagnosis (ICD Code) Assessment [...] Provider Name:Monroe Hudson , 07/02/2025 07:30:00 AM, [address] [place] [address] , [place], [place], [id number], Insurance Providers Payer Name Payer Address Payer Phone Subscriber Number Group Number Insured Name Patient Relationship to Insured Coverage Start Date Coverage End Date MEDICARE OF [place] [address] [place] [phone] [id number] CONCHA STONER Self - patient is the insured 1 [employer] [address] [place] [address] [id number] CONCHA STONER Self - patient is the insured Medical (General) History Medical History History ICD Code Endometrial cancer 2006 with a [facility] Kidney stones Screening colonoscopy in 03/07 009 neg. except for diverticulosis and internal hemorrhoids Denies [place],DM,CVA,Lung disease,renal dise ase Negative colonoscopy in 2013 Surgical History Surgery Date(Month/Year) Cataracts 2023 Benign breast biopsy [facility]
--- OUTSIDE RECORDS SUMMARY | 2025-06-30 10:23 | XMS_ITS | Clinical Summary ---
Author Organization [facility] Address [address] [place] [address] Phone Care Team Providers Care Worship Pastor Name Role Phone Sarah Funes MD Primary Care Provider [phone] Allergies No known active allergies Medications folic [...] file Insurance MEDICARE PART A & B [facility] [employer] MEDICARE SUPPLEMENT MEDICARE PART A & B [facility] MEDICARE SUPPLEMENT MEDICARE PART A & B [employer] MEDICARE SUPPLEMENT MEDICARE PART A & B Member Subscriber Plan / Payer ( fective 2011-Present) Name:Concha Sarmiento Member ID:[id number] Relation to Subscriber:Self Name:Concha Sarmiento Subscriber ID:[id number] Payer ID:[id number] Group ID:Not on file Type:Medicare Address: [employer] [id number] [facility] EXT[employer]ION MEDICARE SUPPLEMENT MEDICARE PART A & B Member Subscriber Plan / Payer (Ef fective 2011-Present) Name:Concha Sarmiento Member ID:[id number] Relation to Subscriber:Self Name:Concha Sarmiento Subscriber ID:[id number] Payer ID:[id number] Group ID:Not on file Type:Medicare Address: [employer] [address] [place] [id number] [place] [address] EXTENSION MEDICARE SUPPLEMENT MEDICARE PART A & B [facility] EX[employer] MEDICARE SUPPLEMENT MEDICARE PART A & B [employer] MED[employer]ARE SUPPLEMENT MEDICARE PART A & B [employer] MED[employer] SUPPLEMENT MEDICARE PART A & B [facility] [employer] MEDICARE SUPPLEMENT Care Teams Worship Pastor Relationship Specialty Start Date End Date Sarah Funes MD [address] [place] [address] PCP - General Internal Medicine 02/16/22 Additional Source Comments The information contained in this document represents components of the legal health record. It is not the complete legal health record.[facility]
== END 2025-06-30 10:17 | disposition home or self-care (01) ==
LOC: HO.HMCC 09:34
PROVIDERS: PCP Internal Medicine; Visit Provider Internal Medicine
DX: Z00.00 Encounter for general adult medical examination without abnormal findings (principal); M85.80 Other specified disorders of bone density and structure, unspecified site; E78.5 Hyperlipidemia, unspecified; E55.9 Vitamin D deficiency, unspecified

== ENCOUNTER 2025-07-01 09:13 | Day surgery (SDC) | payer MEDICARE, OTHER, SELFPAY ==
--- OUTSIDE RECORDS SUMMARY | 2025-05-05 09:11 | XMS_ITS | Patient Health Record ---
Author Organization [facility] Address [address] [place] [id number] Care Team Providers Care Chief Security And Safety Officer Name Role Phone Sarah Funes MD Primary Care Provider Monroe Ruelas Unavailable [phone] Allergies No Known Allergies Reason For Referral No Information Medications Medication SIG (Take, Route, Fr equency, Duration) Notes Start Date End Date Status One Daily For Women Orally Active Calcium 150 MG Orally Activ e Vitamin D3 Active Problems Problem Type SNOMED Code ICD Code Onset Dates Problem Status W/U Status Risk Notes Problem Pre-surgery evaluation (703818145) Other specified pre-operative examination (V72.83) Active confirmed Problem Family History of Cancer of Colon (Situation) (445567762) Family history of colon cancer (V16.0) Active confirmed Problem Screening for malignant neoplasm of colon (201433144) Screening for colorectal cancer (V76.51) Active confirmed Problem Colon cancer screening (631566544) Colon cancer screening (Z12.11) Active confirmed Problem Preprocedural examination (154976262675826) Preprocedural examination (Z01.818) Active confirmed Problem Family history of malignant neoplasm of gastrointestinal tract (344473974) Family history of colon cancer in father (Z80.0) Active confirmed Vital Signs Blood pressure diastolic 77 mm Hg 03/27/2025 Height 68 in 03/27/2025 Blood pressure systolic 111 mm Hg 03/27/2025 Weight 160 lbs 03/27/2025 BMI 24.33 kg/m2 03/27/2025 Procedures Procedure Date Ordered Date Performed Result Body Sit e COLONOSCOPY 03/27/2025 N/A Encounters Encounter Location Date Provider Diagnosis [facility] [address] [place] [address] 03/27/2025 Monroe Hudson Colon cancer screeni ng Z12.11 ; Preprocedural examination Z01.818 and Family history of colon cancer in father Z80.0 [facility] [address] [place] [address] 03/27/2025 Monroe Hudson Assessments Encounter Date Diagnosis (ICD Code) Assessment Notes Treatment Notes Treatment Clinical Notes Section Notes 03/27/2025 Colon cancer screening (ICD-10 - Z12.11) Overall, Concha appears quite well. She is not having any new nor worrisome GI complaints. Given her excellent clinical appearance at age 79, her last colonoscopy being over 10 years ago, and a family history of colon cancer in her father, I did recommend a follow-up colonoscopy for further screening purposes. We did review the rationale for that in regard to colon cancer prevention. Full consent has been obtained for this, including risks of bleeding and perforation. The procedure will be done with monitored anesthesia care. Concha was very comfortable with this plan. Thank you again for allowing me to participate in Concha's care. I shall continue to keep you advised of her progress. 03/27/2025 Preprocedural examination (ICD-10 - Z01.818) Overall, Concha appears quite well. She is not having any new nor worrisome GI complaints. Given her excellent clinical appearance at age 79, her last colonoscopy being over 10 years ago, and a family history of colon cancer in her father, I did recommend a follow-up colonoscopy for further screening purposes. We did review the rationale for that in regard to colon cancer prevention. Full consent has been obtained for this, including risks of bleeding and perforation. The procedure will be done with monitored anesthesia care. Concha was very comfortable with this plan. Thank you again for allowing me to participate in Concha's care. I shall continue to keep you advised of her progress. 03/27/2025 Family history of colon cancer in father (ICD-10 - Z80.0) Overall, Concha appears quite well. She is not having any new nor worrisome GI complaints. Given her excellent clinical appearance at age 79, her last colonoscopy being over 10 years ago, and a family history of colon cancer in her father, I did recommend a follow-up colonoscopy for further screening purposes. We did review the rationale for that in regard to colon cancer prevention. Full consent has been obtained for this, including risks of bleeding and perforation. The procedure will be done with monitored anesthesia care. Concha was very comfortable with this plan. Thank you again for allowing me to participate in Concha's care. I shall continue to keep you advised of her progress. Plan Of Treatment Pending Test Test Name Order Date COLONOSCOPY 03/27/2025 Future Test Test Name Order Date COLONOSCOPY 07/22/2014 Next Appt Details Provider Name:Monroe Hudson , 07/02/2025 07:30:00 AM, [address] [place] [address] , [place], [place], [phone], Insurance Providers Payer Name Payer Address Payer Phone Subscriber Number Group Number Insured Name Patient Relationship to Insured Coverage Start Date Coverage End Date MEDICARE OF [place] [address] [place] [phone] [id number] CONCHA STONER Self - patient is the insured 1 [employer] [address] [place] [address] [id number] CONCHA STONER Self - patient is the insured Medical (General) History Medical History History ICD Code Endometrial cancer 2006 with a [facility] Kidney stones Screening colonoscopy in 03/07 009 neg. except for diverticulosis and internal hemorrhoids Denies OR,DM,CVA,Lung disease,renal dise ase Negative colonoscopy in 2013 Surgical History Surgery Date(Month/Year) Cataracts 2023 Benign breast biopsy [facility]
[2025-06-30 13:10] VITALS: BMI 24.3
[2025-07-01 09:59] VITALS: BP 141/86; PULSE 96; RESP 16; TEMP 36.6; O2SAT 98
--- NOTE | 2025-07-01 11:06 | MHC.SHP ---
Pre-Procedural Eval Section A - 24 Hr Update-Section A only Date of Service: 07/01/25 Section B - Complete if H&P > 30 days Chief Complaint: hx malignant neoplasm,screening Details of Present Illness: see H&P no changes Relevant Family History (Specify if Yes): Yes Relevant Social History: None Present Medications: see Short Stay Collaborative assessment Medical History: No relevant PMH History of Previous Operations: No relevant previous surgery Allergies: Allergies Allergy/AdvReac Type Severity Reaction Status Date / Time No Known Allergies Allergy Verified 06/30/25 09:41 Review of Systems Sugical H&P ROS: Negative: Constitution, Cardiovascular, Respiratory, Neurological, Psychiatric, Hem-Onc, Allergic/Immunologic, Gastrointestinal, Genitourinary, Musculoskeletal, Integumentary, Endocrine and Eyes/Ears/Nose/Throat Exam Surgical H&P Exam: Normal: HEENT, Normal: Heart, Normal: Lungs, Normal: Extremities, Normal: Abdomen, Normal: Skin and Normal: Neurological Plan Diagnosis/Plan: Unchanged I have reviewed the history and physical and performed a pertinent physical examination on my patient. No changes have occurred unless specified. Time Spent With Patient Time: Total time managing care of this patient today ____ minutes.
[2025-07-01 11:58] VITALS: BP 98/61; PULSE 90; RESP 16; TEMP 37.1; O2SAT 99
[2025-07-01 12:10] VITALS: BP 148/50; PULSE 76; RESP 16; TEMP 36.1; O2SAT 98
--- NOTE | 2025-07-01 12:30 | OP_ITS ---
DATE OF SERVICE: 07/01/2025 SURGEON: Zeyad Bryant MD INDICATIONS: Colon cancer screening and family history of colon cancer. PREOPERATIVE DIAGNOSIS: POSTOPERATIVE DIAGNOSIS: PROCEDURE PERFORMED: Colonoscopy to the terminal ileum. ESTIMATED BLOOD LOSS: COMPLICATIONS: ANESTHESIA: Monitored anesthesia care. ASSISTANTS: SPECIMENS: DESCRIPTION OF PROCEDURE: A history and physical was performed. The risks and benefits of the procedure were explained to the patient. Informed consent was obtained. The patient was placed in the left lateral decubitus position. A digital rectal exam was performed and was found to be normal. The Olympus pediatric video colonoscope was introduced into the rectum and advanced to the cecum. The cecum was identified by transillumination, palpation, and identification of ileocecal valve. Examination was performed. The scope was removed. She tolerated the procedure well and was returned to the recovery area in stable condition. FINDINGS: The terminal ileum was examined and appeared normal. The visualized colonic mucosa was within normal limits without evidence of masses, ulcers, or polyps. There was moderate diverticulosis involving the sigmoid. Retroflexed examination showed small internal hemorrhoids. IMPRESSION: Normal colonoscopy. RECOMMENDATION: 1. Follow up as needed. 2. Repeat colonoscopy is recommended in 5 years for family history of colon cancer. This is optional based on age. MD DEEDEE Wade/HAOL / [id number]
== END 2025-07-01 12:46 | disposition home or self-care (01) ==
PROVIDERS: PCP Internal Medicine; Visit Provider Internal Medicine Gastroenterology
PROC: 0DJD8ZZ Inspection of Lower Intestinal Tract, Via Natural or Artificial Opening Endoscopic (ICD-10-PCS; CPT 45378; principal; 2025-07-01 12:10)
DX: Z12.11 Encounter for screening for malignant neoplasm of colon (principal); Z80.0 Family history of malignant neoplasm of digestive organs; K57.30 Diverticulosis of large intestine without perforation or abscess without bleeding; K64.8 Other hemorrhoids; Z85.42 Personal history of malignant neoplasm of other parts of uterus; Z87.442 Personal history of urinary calculi; Z79.899 Other long term (current) drug therapy; Z98.890 Other specified postprocedural states
CPT/HCPCS: G0105; J2003; J2704